=== PATIENT | male | born 1955 | race Caucasian/White ===

== ENCOUNTER → 2016-04-01 | Outpatient (CLI) | payer BC, OTHER ==
[~2016-04-01] MED LIST: ATOR-26 PO; BENA10TA10 PO; BUPR200T2 PO; CHOL20007 PO; GABA-113 PO; GLC/500 PO; GLIM1TAB2 PO; HYDR-3419 PO; HYDR-5688 PO; LEVO25TA5 PO; METF1000 PO; PREG200C PO; RXC5 PO; SITA100T3 PO; SPRYCEL PO
[2016-04-01 13:16] LABS: BASO % 0.6 %; BASO ABS # 0.03 K/uL (0-0.2); COMPLETE YES; EOS % 6.6 %; HEMATOCRIT 38.4 % (42-52); IG% 0.2 %; LYMPH % 35.7 %; LYMPH ABS # 1.85 K/uL (1.2-3.4); MEAN CORPUSCULAR HEMOGLOBIN 33.8 pg (25-34); MEAN CORPUSCULAR HGB CONC 34.9 g/dl (32-36); MEAN PLATELET VOLUME 11.7 fL (7.4-10.4); NEUT % 46.9 %; PLATELET COUNT 160 K/uL (130-400); RED BLOOD COUNT 3.96 M/uL (4.7-6.1); WHITE BLOOD COUNT 5.18 K/uL (4.8-10.8)
[2016-04-01 13:50] LABS: ESTIMATED AVERAGE GLUCOSE 128 mg/dl; HA1C FLAG Normal (Normal)
[2016-04-01 15:39] LABS: ALT/SGPT 30 U/L (12-78); AST/SGOT 17 U/L (15-37); BLOOD UREA NITROGEN 23 mg/dl (7-18); BUN/CREATININE RATIO 17.4 (10-20); CALCIUM 9.2 mg/dl (8.5-10.1); CARBON DIOXIDE 29 mmol/L (21-32); CHLORIDE 105 mmol/L (98-107); CHOLESTEROL 225 mg/dl (0-200); GLUCOSE 159 mg/dl (70-99); POTASSIUM 4.8 mmol/L (3.5-5.1); SODIUM 142 mmol/L (136-145); URIC ACID 6.3 mg/dl (2.6-7.2)
[2016-04-01 15:50] LABS: ALB/GLOB RATIO 1.6 (0.9-2); ALKALINE PHOSPHATASE 58 U/L (45-117); CHOLESTEROL/HDL RATIO 5.1; HDL CHOLESTEROL 44 mg/dl; LDL CHOLESTEROL CALCULATED 129 mg/dl; TRIGLYCERIDES 258 mg/dl (0-150); VERY LOW DENSITY LIPOPROT CALC 52 mg/dl
== END | disposition home or self-care (01) ==
LOC: C.LABMFLN 07:39
PROVIDERS: ATTEND Family Medicine
DX: E78.00 Pure hypercholesterolemia, unspecified (principal); I10 Essential (primary) hypertension; E11.29 Type 2 diabetes mellitus with other diabetic kidney complication; C92.10 Chronic myeloid leukemia, BCR/ABL-positive, not having achieved remission; E55.9 Vitamin D deficiency, unspecified; M10.9 Gout, unspecified; E03.9 Hypothyroidism, unspecified

== ENCOUNTER → 2016-07-31 | Outpatient (CLI) | payer OTHER ==
[2016-07-31 13:08] LABS: BASO % 0.7 %; BASO ABS # 0.04 K/uL (0-0.2); COMPLETE YES; EOS % 5.7 %; HEMATOCRIT 39.5 % (42-52); IG% 0.2 %; LYMPH % 42.4 %; LYMPH ABS # 2.47 K/uL (1.2-3.4); MEAN CELL VOLUME 96.3 fL (80-100); MEAN CORPUSCULAR HEMOGLOBIN 33.2 pg (25-34); MEAN CORPUSCULAR HGB CONC 34.4 g/dl (32-36); MEAN PLATELET VOLUME 11.3 fL (7.4-10.4); MONO % 13.1 %; NEUT % 37.9 %; PLATELET COUNT 182 K/uL (130-400); WHITE BLOOD COUNT 5.82 K/uL (4.8-10.8)
[2016-07-31 13:10] LABS: ALT/SGPT 35 U/L (12-78); BLOOD UREA NITROGEN 19 mg/dl (7-18); BUN/CREATININE RATIO 13.4 (10-20); CARBON DIOXIDE 28 mmol/L (21-32); CHLORIDE 106 mmol/L (98-107); CHOLESTEROL 148 mg/dl (0-200); GLUCOSE 157 mg/dl (70-99); POTASSIUM 4.2 mmol/L (3.5-5.1); SODIUM 142 mmol/L (136-145); TRIGLYCERIDES 146 mg/dl (0-150); VERY LOW DENSITY LIPOPROT CALC 29 mg/dl
[2016-07-31 13:11] LABS: CALCIUM 10.4 mg/dl (8.5-10.1)
[2016-07-31 13:19] LABS: ESTIMATED AVERAGE GLUCOSE 120 mg/dl; HA1C FLAG Normal (Normal)
[2016-07-31 13:21] LABS: ALB/GLOB RATIO 1.6 (0.9-2); ALKALINE PHOSPHATASE 62 U/L (45-117); AST/SGOT 26 U/L (15-37); CHOLESTEROL/HDL RATIO 3.4; HDL CHOLESTEROL 43 mg/dl; LDL CHOLESTEROL CALCULATED 76 mg/dl
== END | disposition home or self-care (01) ==
LOC: C.LABMFLN 07:44
PROVIDERS: ATTEND Family Medicine
DX: E78.00 Pure hypercholesterolemia, unspecified (principal); I10 Essential (primary) hypertension; E11.29 Type 2 diabetes mellitus with other diabetic kidney complication; E03.9 Hypothyroidism, unspecified; C92.10 Chronic myeloid leukemia, BCR/ABL-positive, not having achieved remission

== ENCOUNTER → 2016-08-19 | Outpatient (CLI) | payer BC ==
[2016-08-19 13:36] LABS: HEMATOCRIT 37.7 % (42-52); MEAN CELL VOLUME 97.2 fL (80-100); MEAN CORPUSCULAR HEMOGLOBIN 33.5 pg (25-34); MEAN CORPUSCULAR HGB CONC 34.5 g/dl (32-36); MEAN PLATELET VOLUME 11.7 fL (7.4-10.4); PLATELET COUNT 148 K/uL (130-400); RED BLOOD COUNT 3.88 M/uL (4.7-6.1); WHITE BLOOD COUNT 5.51 K/uL (4.8-10.8)
[2016-08-19 14:44] LABS: ALT/SGPT 33 U/L (12-78); AST/SGOT 22 U/L (15-37); BLOOD UREA NITROGEN 17 mg/dl (7-18); BUN/CREATININE RATIO 14.5 (10-20); CALCIUM 8.9 mg/dl (8.5-10.1); CARBON DIOXIDE 25 mmol/L (21-32); CHLORIDE 108 mmol/L (98-107); GLUCOSE 152 mg/dl (70-99); POTASSIUM 4.3 mmol/L (3.5-5.1); SODIUM 141 mmol/L (136-145)
[2016-08-19 14:46] LABS: ALKALINE PHOSPHATASE 59 U/L (45-117); PHOSPHORUS 2.3 mg/dl (2.5-4.9)
[2016-08-19 14:59] LABS: EOSINOPHIL % 1.7 %; HYPERSEGMENTED POLYS 1+; NEUTROPHILS % 68.7 %
[2016-08-19 18:29] LABS: MDIFF REQUEST DONE
== END | disposition home or self-care (01) ==
LOC: C.LABMFLN 10:12
PROVIDERS: ATTEND Internal Medicine Hematology & Oncology
DX: C92.90 Myeloid leukemia, unspecified, not having achieved remission (principal); D72.829 Elevated white blood cell count, unspecified

== ENCOUNTER → 2016-09-05 | Outpatient (CLI) | payer BC ==
[2016-09-05 17:58] LABS: BLOOD UREA NITROGEN 14 mg/dl (7-18); CALCIUM 9.3 mg/dl (8.5-10.1); CARBON DIOXIDE 29 mmol/L (21-32); CHLORIDE 105 mmol/L (98-107); GLUCOSE 171 mg/dl (70-99); POTASSIUM 4.7 mmol/L (3.5-5.1); SODIUM 139 mmol/L (136-145)
[2016-09-05 18:06] LABS: URINE APPEARANCE CLEAR (CLEAR); URINE BILIRUBIN NEG (NEG); URINE COLOR YELLOW; URINE NITRITE NEG (NEG); URINE PH 6.5 (4.5-7.5); URINE SPECIFIC GRAVITY 1.029 (1.000-1.030); UROBILINOGEN NEG (NEG)
[2016-09-05 18:16] LABS: BASO % 0.5 %; BASO ABS # 0.03 K/uL (0-0.2); COMPLETE YES; EOS % 3.7 %; HEMATOCRIT 39.4 % (42-52); IG% 0.2 %; LYMPH % 28.6 %; LYMPH ABS # 1.56 K/uL (1.2-3.4); MANUAL MICROSCOPIC REQUIRED? NO; MEAN CELL VOLUME 97.5 fL (80-100); MEAN CORPUSCULAR HEMOGLOBIN 33.4 pg (25-34); MEAN CORPUSCULAR HGB CONC 34.3 g/dl (32-36); MEAN PLATELET VOLUME 11.3 fL (7.4-10.4); MONO % 12.3 %; NEUT % 54.7 %; PLATELET COUNT 164 K/uL (130-400); RED BLOOD COUNT 4.04 M/uL (4.7-6.1); REVIEW REQ? NO; WHITE BLOOD COUNT 5.46 K/uL (4.8-10.8)
== END | disposition home or self-care (01) ==
LOC: C.LABMFLN 12:21
PROVIDERS: ATTEND Family Medicine
DX: I10 Essential (primary) hypertension (principal); R42 Dizziness and giddiness; M79.1 Myalgia; R50.9 Fever, unspecified

== ENCOUNTER 2016-10-04 08:02 | Inpatient (IN) | payer BC ==
[2016-09-16 10:22] VITALS: BMI 27.0
--- NOTE | 2016-09-16 11:01 | PAT Medication Instructions ---
Service Date Sep 16, 2016. Current Home Medication List Atorvastatin (Lipitor), 80 MG PO HS Benazepril (Lotensin), 10 MG PO QAM Bupropion (Wellbutrin Sr), 200 MG PO BID Cholecalciferol (Vitamin D3), 1 TAB PO QAM Gabapentin (Neurontin), 300 MG PO BID Gabapentin (Neurontin), 300 MG PO NOON Glimepiride (Glimepiride), 1 TAB PO QPM Hydrocodone/Acetaminophen 5MG/325MG ([place] 5MG/325MG), 1 TABLET PO QID PRN for N Levothyroxine Sodium (Levothyroxine Sodium), 1 TAB PO QAM Metformin Hcl (Glucophage), 500 MG PO BID [Sprycel], 100 MG PO HS Medication Instructions For Your Scheduled Surgery - Check with surgeon/oncologist for instructions: [Sprycel], 100 MG PO HS - Hold the following medications 48 hours prior to surgery: Metformin Hcl (Glucophage), 500 MG PO BID - Hold the following medications the morning of surgery: Cholecalciferol (Vitamin D3), 1 TAB PO QAM Benazepril (Lotensin), 10 MG PO QAM - Take the following medications the morning of surgery with a sip of water: Levothyroxine Sodium (Levothyroxine Sodium), 1 TAB PO QAM Hydrocodone/Acetaminophen 5MG/325MG ([place] 5MG/325MG), 1 TABLET PO QID PRN for N (okay to take up to 4 hours prior to surgery if needed) Gabapentin (Neurontin), 300 MG PO BID Bupropion (Wellbutrin Sr), 200 MG PO BID - Take the following medications as scheduled the night before surgery: Hydrocodone/Acetaminophen 5MG/325MG ([place] 5MG/325MG), 1 TABLET PO QID PRN for N (if needed) Glimepiride (Glimepiride), 1 TAB PO QPM Gabapentin (Neurontin), 300 MG PO BID Gabapentin (Neurontin), 300 MG PO NOON Bupropion (Wellbutrin Sr), 200 MG PO BID Atorvastatin (Lipitor), 80 MG PO HS If you have any questions please call us at [phone] or [phone] or [phone]
--- NOTE | 2016-09-16 11:54 | DIAGNOSTIC IMAGING REPORT ---
CHEST PREADMISSION(PA/LAT) CLINICAL HISTORY: Preoperative chest COMPARISON STUDY: 11/22/2014 FINDINGS: The heart is the upper limits of normal in size. There is no failure. There is no focal pulmonary consolidation. There are no pleural effusions.[ IMPRESSION: No active disease in the chest. Electronically signed by: Antonino Barrett M.D. 09/16/2016 11:53 AM Dictated Date/Time: 09/16/2016 11:52 AM
[2016-10-04] VITALS (9 sets, daily range): BP systolic 122–167; BP diastolic 63–83; PULSE 69–91; TEMP 36.4–36.9; O2SAT 97–100; Ht 177.8 cm; Wt 87.4 kg
[~2016-10-04] VITALS: Ht 177.8 cm; Wt 87.4 kg
[~2016-10-04 08:02] MED LIST changes: +CEFAZOLIN 2000 MG/60 ML D5W IV SCH; -HYDR-3419 PO; +LACTATED RINGER'S 1000ML 1,000 ML IV SCH; -METF1000 PO; -PREG200C PO; -RXC5 PO; -SITA100T3 PO
[2016-10-04 08:26] LABS: HEMATOCRIT 37.7 % (42-52); MEAN CELL VOLUME 97.7 fL (80-100); MEAN CORPUSCULAR HEMOGLOBIN 33.9 pg (25-34); MEAN PLATELET VOLUME 9.9 fL (7.4-10.4); PLATELET COUNT 151 K/uL (130-400); RED BLOOD COUNT 3.86 M/uL (4.7-6.1); WHITE BLOOD COUNT 4.77 K/uL (4.8-10.8)
[2016-10-04 08:43] LABS: MEAN CORPUSCULAR HGB CONC 34.7 g/dl (32-36)
[2016-10-04] MEDS ORDERED: HYDROmorphone INJ 1 MG/ML SYR IV PRN (09:15)
[2016-10-04] MEDS ORDERED: ONDANSETRON INJ 2 MG/ML 2 ML VIAL IV PRN ×2 (09:15→13:00)
[2016-10-04] MEDS ORDERED: EpHEDrine SULFATE INJ 50 MG/ML AMP IV PRN (09:15)
[2016-10-04] MEDS ORDERED: ATROPINE SULFATE 0.1 MG/ML 5ML SYR IV PRN (09:15)
[2016-10-04] MEDS ORDERED: MIDAZOLAM HCL 1 MG/ML 2ML VIAL ONE (09:31)
[2016-10-04] MEDS ORDERED: FENTANYL CITRATE INJ 50 MCG/1 ML 2 ML VIAL ONE ×3 (09:31→12:09)
--- NOTE | 2016-10-04 09:45 | History & Physical Bridge Note ---
H&P Re-Evaluation Bridge Note: I have examined the patient, reviewed the History & Physical and in the interval since the performance of the History & Physical I have noted the following changes of clinical significance: No changes noted
--- NOTE | 2016-10-04 09:46 | History and Physical ---
History & Physical Date Oct 04, 2016. Chief Complaint Back and leg pain History of Present Illness The patient is a 61 year old male with complaints of Past Medical/Surgical History Medical Problems: (1) Diabetes (2) Diabetic neuropathy (3) Leukemia Surgical Problems: (1) H/O eye surgery Additional History Hepatic Disease: No Endocrine Disorder: No Kidney Disease: No Hypertension: Yes Heart Disease: No Bleeding Tendencies: No Infectious Diseases: No Allergies Coded Allergies: Lisinopril (Verified Adverse Reaction, Mild, NAUSEA, 10/04/16) Codeine (Verified Adverse Reaction, Unknown, NAUSEA, 10/04/16) Home Medications Scheduled Atorvastatin (Lipitor), 80 MG PO HS Benazepril (Lotensin), 10 MG PO QAM Bupropion (Wellbutrin Sr), 200 MG PO BID Cholecalciferol (Vitamin D3), 1 TAB PO QAM Gabapentin (Neurontin), 300 MG PO BID Gabapentin (Neurontin), 300 MG PO NOON Glimepiride (Glimepiride), 1 TAB PO QPM Levothyroxine Sodium (Levothyroxine Sodium), 1 TAB PO QAM Metformin Hcl (Glucophage), 500 MG PO BID [Sprycel], 100 MG PO HS Scheduled PRN Hydrocodone/Acetaminophen 5MG/325MG ([place] 5MG/325MG), 1 TABLET PO QID PRN for N Physical Examination Skin: warm/dry, no rash Eyes: normal inspection, EOMI, sclerae normal ENT: normal ENT inspection, pharynx normal Head: normocephalic, atraumatic Neck: supple, no adenopathy, trachea midline Respiratory/Chest: lungs clear, normal breath sounds, no respiratory distress Cardiovascular: regular rate, rhythm, no edema, no murmur Abdomen / GI: normal bowel sounds, non tender Back: normal inspection Extremities: normal inspection, normal range of motion Neurologic/Psych: no motor/sensory deficits, alert, normal reflexes, oriented x 3 Diagnosis Lumbar spinal stenosis Plan of Treatment Lumbar decompression L3 4 L4 5 with fusion
[2016-10-04] MEDS ORDERED: BACITRACIN 50000 UNIT VIAL ONE (10:19)
[2016-10-04] MEDS ORDERED: BUPIVACAINE/EPINEPHRINE 0.5% MPF 1:200,000 10 ML VIAL ONE (10:19)
[2016-10-04] MEDS ORDERED: SODIUM CHLORIDE 0.9% PF 50 ML VIAL ONE (10:19)
[2016-10-04] MEDS ORDERED: HYDROmorphone INJ 2 MG/ML SYR/VIAL ONE ×2 (10:49→12:51)
[2016-10-04] MEDS ORDERED: DEXAMETHASONE SOD INJ 4 MG/ML VIAL ONE (11:25)
[2016-10-04] MEDS ORDERED: LIDOCAINE HCL 2% 2 ML VIAL (20MG/ML) ONE (11:25)
[2016-10-04] MEDS ORDERED: ROCURONIUM BROMIDE 10 MG/ML 5 ML VIAL ONE (11:25)
[2016-10-04] MEDS ORDERED: PROPOFOL IV EMULSION 10 MG/ML 20 ML VIAL IV ONE (11:25)
[2016-10-04] MEDS ORDERED: ALBUMIN HUMAN 5% 12.5 GM/250 ML VIAL IV ONE (12:17)
[2016-10-04] MEDS ORDERED: FLOSEAL HEMOSTATIC MATRIX 10ML TOP ONE (12:41)
[2016-10-04] MEDS ORDERED: SODIUM CHLORIDE 0.9% 1000ML 1,000 ML IV SCH (12:49)
[2016-10-04] MEDS ORDERED: LABETALOL HCL IV 5 MG/ML 20ML IV ONE (12:53)
[2016-10-04] MEDS ORDERED: GLYCOPYRROLATE INJ 0.2 MG/ML VIAL ONE (12:53)
[2016-10-04] MEDS ORDERED: EpHEDrine SULFATE 50MG/5ML SYR ONE (12:53)
[2016-10-04] MEDS ORDERED: ONDANSETRON INJ 2 MG/ML 2 ML VIAL ONE (12:53)
[2016-10-04] MEDS ORDERED: NEOSTIGMINE METHYLSULFATE 1 MG/ML 10ML VIAL ONE (12:53)
[2016-10-04] MEDS ORDERED: ESMOLOL HCL 10 MG/ML 10 ML VIAL ONE (12:53)
--- NOTE | 2016-10-04 12:59 | [facility] Operative Report ---
Operative Report Operative Date Oct 04, 2016. Pre-Operative Diagnosis Lumbar Spinal Stenosis Post-Operative Diagnosis Lumbar Spinal Stenosis Procedure(s) Performed #1 lumbar decompression medial facetectomies foraminotomies L2 3 L3 4 L4 5. #2 posterior spinal fusion L3 4 L4 5. #3 placement posterior segmental instrumentation L3 4 L4 5. #4 interbody fusion L3 4 L4 5. #5 placement peek cage 11 x 22 at L4 5 and 12 x 22 at L34. #6 placement locally harvested morcellized autograft in the posterior gutters. #7 placement infuse collagen sponge combined Master graft in the posterior lateral gutters Valencia bone graft in the interbody space. Surgeon Dr. Grover Radiagraph Operator Surgeon(s) Crisotpher García PA-C Estimated Blood Loss 525 cc Findings Severe stenosis Specimens none per surgeon Description of Procedure Patient was met with preoperatively case discussed all questions are dressed with a point patient was taken back to the operative suite and after undergoing successful intubation placed in a prone position on the Ashok table on top of the Jaquan frame. All bony promises well-padded eyes inspected to ensure no external pressure. Lumbar spines prepped and draped in normal sterile fashion. Sharp dissection with the assistance of Bovie cautery performed onto an exposing the lamina and transverse processes of L3 L4 L5 bilaterally. A caudal to cephalad fashion revision complete laminectomy of L4 and L3 was performed as well as partial laminectomy of L2 to address severe lateral recess and foraminal stenosis. After this complete pedicle screws were placed in L3 L4-L5 bilaterally with the assistance of fluoroscopy in the properly sized crystal placed. Through a transforaminal approach on the right a complete discectomy of L4 5 was performed and plate created subcortical bleeding bone and a 11 x 22 mm peek cage filled with Valencia bone grafting tapped in position. Then proceeded to 34 and again through a transforaminal approach on the right a complete discectomy was performed and plate create a subcortical bleeding bone and a 12 x 22 mm peek cage filled with Valencia bone grafting tapped in position. Brought to then locked and final position bilaterally and the transverse processes of L3 L4-L5 burred to subcortical bleeding bone. Infuse collagen sponge mask graft locally harvested morcellized autograft placed and posterior gutters. A 15 round MELISSA drain inserted incision closed with 1 Vicryl in the fascia 2-0 Vicryl subcutaneously 4-0 Monocryl for final skin closure Steri-Strips sterile dressing placed patient we can taken to PACU stable condition. Please note Daniele record was present throughout the entire procedure involved in patient positioning complex portions of the procedure and final skin closure. I attest to the content of the Intraoperative Record and any orders documented therein. Any exceptions are noted below.
[2016-10-04] MEDS ORDERED: ACETAMINOPHEN 500 MG TAB PO PRN (13:00)
[2016-10-04] MEDS ORDERED: ALUMINUM/MAGNESIUM SUSP 30 ML UDC PO PRN (13:00)
[2016-10-04] MEDS ORDERED: PROMETHAZINE HCL INJ 12.5 MG in SODIUM CHLORIDE 0.9% 50ML 50 ML IV PRN (13:00)
[2016-10-04] MEDS ORDERED: SOD PHOSPHATE/SOD BIPHOSPHATE ENEMA 132 ML BTL PR PRN (13:00)
[2016-10-04] MEDS ORDERED: hydrOXYzine HCL 25 MG TAB PO PRN (13:00)
[2016-10-04] MEDS ORDERED: MAGNESIUM HYDROXIDE SUSP 30 ML UDC PO PRN (13:00)
[2016-10-04] MEDS ORDERED: ACETAMINOPHEN IV 100 ML IV PRN (13:00)
[2016-10-04] MEDS ORDERED: LORAZEPAM INJ 0.5 MG in SYRINGE 0 ML IV PRN (13:00)
[2016-10-04] MEDS ORDERED: BISACODYL 10 MG SUPP PR PRN (13:00)
[2016-10-04] MEDS ORDERED: DO NOT ADMINISTER FLU VACCINE PRN ×3 (13:00)
[2016-10-04] MEDS ORDERED: LORAZEPAM 0.5 MG TAB PO PRN (13:00)
[2016-10-04] MEDS ORDERED: FAMOTIDINE 20 MG TAB PO PRN (13:00)
[2016-10-04] MEDS ORDERED: NALOXONE HCL 0.4 MG/1 ML VIAL/CARP IV PRN ×2 (13:00)
[2016-10-04] MEDS ORDERED: DO NOT ADMINISTER PNEUMOCOCCAL VACCINE PRN ×2 (13:00)
[2016-10-04] MEDS ORDERED: PHARMACY GLYCEMIC MGMT CONSULT PRN (13:02)
[2016-10-04] MEDS: FENTANYL CITRATE INJ 50 MCG/1 ML 2 ML VIAL IV PRN ×4 (13:12→13:30)
[2016-10-04] MEDS ORDERED: HYDROmorphone HCL 0.5MG/ML 50 ML CASSETTE ONE (13:12)
--- NOTE | 2016-10-04 13:33 | DIAGNOSTIC IMAGING REPORT ---
INTRAOPERATIVE LUMBAR SPINE 2 VIEWS CLINICAL HISTORY: L3-5 LAMI/DECOMPRESSION/FUSION/INTERBODY COMPARISON STUDY: Outside radiograph dated 08/13/2016 FINDINGS: 12 seconds of fluoroscopic time was utilized. 2 intraoperative fluoroscopic spot images are provided for interpretation. There are postsurgical changes of discectomies and interbody fusions at the L3-4, and L4-5 levels. There is posterior pedicle screw spinal fusion with pedicle screws at the L3, L4, and L5 levels with adjoining spinal rods. IMPRESSION: Postsurgical changes of discectomies and spinal fusion at the L3-4 and L4-5 levels. Electronically signed by: Antonino Barrett M.D. 10/04/2016 1:32 PM Dictated Date/Time: 10/04/2016 1:30 PM
--- NOTE | 2016-10-04 13:40 | Pharmacy Progress Note ---
Glycemic Control Intl Consult Date of Service Oct 04, 2016. Scope Glycemic Pharmacist consulted by Dr Grover on 10/04/16 for glycemic control and to write orders per [facility] inpatient glycemic control protocol Objective Weight (Kilograms): 87.40 Accuchecks BSG (last 24hrs): Test 10/04/16 08:25 10/04/16 13:14 Bedside Glucose 139 mg/dl (70-99) 191 mg/dl (70-99) Laboratory Data (last 24hrs) Test 10/04/16 08:16 White Blood Count 4.77 K/uL Recent Pertinent Medications Outpatient Anti-diabetic Regimen: * Amaryl 1 mg daily * Metformin 500 mg BID * A1c = 5.8 % 07/31/16 Risk Factors for Insulin Resistance: * Steroids: Decadron intraop (potentially up to 12 mg), 6 mg IV q8h x 3 doses postop * Recent Surgery: POD #0 s/p spinal surgery * Diet: Regular diet ordered -> I have changed this to type 2 diabetes Assessment & Plan ASSESSMENT: * 61 y/o male admitted for lumbar surgery, with well controlled diabetes as an outpatient * Pt is maintained on oral antidiabetic agents as an outpatient * Oral agents are not recommended for inpatient use d/t drug interactions, changing PO intake, and difficulty titrating for acute hyper/hypoglycemia. ADA recommends re-initiating outpatient oral agents 1-2 days prior to discharge if/ when appropriate if they were held on admission. * Will hold oral agents for admission and utilize SQ basal bolus insulin regimen which is the recommended regimen for inpatient glycemic control. * Will initiate weight based insulin dosing for insulin chris patient and titrate based on BSG trends. * Due to Decadron being on board, patient will need aggressively dosed with insulin for the next 36-48 hours * This is also based upon pharmacy's review of multiple patients receiving postop Decadron * ADA & AACE recommend a goal blood sugar range 140-180 mg/dl for the majority of critically ill & non-critically ill patients. However, more stringent targets may be selected in individual cases. Will utilize more stringent goal of 110-140mg/dl based on patient age & comorbidities. Additionally, tighter glycemic control is warranted to facilitate wound/infection healing. PLAN FOR INPATIENT GLYCEMIC CONTROL: * Holding outpatient oral diabetes medications * Basal insulin with LANTUS: * POD #0 22 units with dinner today * POD #1 15 units in the AM, 8 units in the PM * Correctional Insulin with NOVOLOG per scale ACHS or Q6hrs while NPO * Goal Range: Low 110 mg/dL - High 140 mg/dL * Correction Factor: POD #0 - 20 mg/dL/unit POD #1 and on - 25 mg/dL/unit * Nutritional / Prandial insulin per carb ratio: POD #0 - 1 unit per 6 grams CHO consumed POD #1 - 1 unit per 9 grams CHO consumed (starting with dinner) POD #2 - 1 unit per 15 gm CHO consumed * Plan to resume orals on POD #2 DISCHARGE RECOMMENDATIONS: * A1c acceptable - continue outpatient oral meds Thank you.
[2016-10-04] MEDS ORDERED: GLUCAGON FOR INJ 1 MG VIAL SQ PRN (13:45)
[2016-10-04] MEDS ORDERED: GLUCOSE 10 TABS/TUBE PO PRN (13:45)
[2016-10-04] MEDS ORDERED: DEXTROSE 50% 50 ML SYR IV PRN (13:45)
[2016-10-04] MEDS ORDERED: GLUCOSE 40% GEL 15 GM TUBE PO PRN (13:45)
[2016-10-04] MEDS: HYDROmorphone HCL 0.5MG/ML 50 ML CASSETTE IV PRN ×3 (14:09→22:51)
[2016-10-04] MEDS: METOCLOPRAMIDE HCL INJ 5 MG/ML 2 ML VIAL IV PRN ×2 (14:30→21:41)
[2016-10-04] MEDS: LACTATED RINGER'S 1000ML 1,000 ML IV SCH ×2 (15:06→19:05)
--- NOTE | 2016-10-04 15:48 | Anesthesiology Progress Note ---
Anesthesia Post Op Note Date & Time Oct 04, 2016 at 15:48 Vital Signs Pain Intensity: 4.0 Vital Signs Past 12 Hours Date Time Temp Pulse Resp B/P (MAP) Pulse Ox O2 Delivery O2 Flow Rate FiO2 10/04/16 15:08 36.4 70 16 137/77 (97) 100 Nasal Cannula 3.0 10/04/16 14:35 79 18 157/83 (107) 98 10/04/16 14:17 Nasal Cannula 3.0 100 10/04/16 14:12 99 Nasal Cannula 3.0 10/04/16 14:06 36.7 74 15 167/65 (99) 100 Nasal Cannula 3.0 10/04/16 13:53 36.5 10/04/16 13:50 73 152/79 100 10/04/16 13:50 72 12 10/04/16 13:45 79 12 10/04/16 13:45 80 12 160/83 100 10/04/16 13:40 77 10/04/16 13:40 77 16 165/82 100 10/04/16 13:35 76 158/85 100 10/04/16 13:35 76 14 10/04/16 13:30 75 14 156/87 100 10/04/16 13:30 76 10/04/16 13:26 145/84 10/04/16 13:25 81 9 100 10/04/16 13:25 81 9 10/04/16 13:20 81 7 156/79 100 10/04/16 13:20 81 7 10/04/16 13:16 164/81 10/04/16 13:15 87 21 100 10/04/16 13:15 88 21 10/04/16 13:10 84 14 10/04/16 13:10 83 14 159/86 100 10/04/16 13:10 36.7 84 16 159/86 100 Mask 10 10/04/16 08:19 36.9 73 18 122/67 100 Notes Mental Status: alert / awake / arousable, participated in evaluation Pt Amnestic to Procedure: Yes Nausea / Vomiting: adequately controlled Pain: adequately controlled Airway Patency, RR, SpO2: stable & adequate BP & HR: stable & adequate Hydration State: stable & adequate Anesthetic Complications: no major complications apparent
[2016-10-04] MEDS ORDERED: INSULIN GLARGINE SOLOSTAR 100 UNITS/ML 3 ML PEN SC ONE (17:00)
[2016-10-04] MEDS: CEFAZOLIN IV 2,000 MG in DEXTROSE 5% 50ML 50 ML IV SCH (18:38)
[2016-10-04] MEDS: INSULIN ASPART 100 UNITS/ML 3 ML PEN SC SCH ×2 (18:39→21:48)
[2016-10-04] MEDS: BuPROPion SR 100 MG TABCR PO SCH (21:00)
[2016-10-04] MEDS: GABAPENTIN 300 MG CAP PO SCH (21:00)
[2016-10-04] MEDS: DOCUSATE SODIUM/SENNA 50/8.6MG TAB PO SCH (21:00)
[2016-10-04] MEDS: ATORVASTATIN 40 MG TAB PO SCH (21:00)
[2016-10-04] MEDS: DEXAMETHASONE INJ 6 MG in SYRINGE 0 ML IV SCH (22:22)
[2016-10-05] MEDS: LACTATED RINGER'S 1000ML 1,000 ML IV SCH (02:07)
[2016-10-05] MEDS: CEFAZOLIN IV 2,000 MG in DEXTROSE 5% 50ML 50 ML IV SCH (02:07)
[2016-10-05 03:15] VITALS: BP 124/57; PULSE 77; TEMP 36.8; O2SAT 95
[2016-10-05] MEDS ORDERED: HYDROmorphone INJ 1 MG/ML SYR IV PRN ×2 (06:00→08:45)
[2016-10-05] MEDS ORDERED: DC PCA SCH (06:00)
[2016-10-05] MEDS ORDERED: HYDROmorphone INJ 0.5 MG/0.5 ML SYR IV PRN (06:00)
[2016-10-05] MEDS: DEXAMETHASONE INJ 6 MG in SYRINGE 0 ML IV SCH ×2 (06:07→13:44)
[2016-10-05] MEDS: LEVOTHYROXINE 25 MCG TAB PO SCH (06:07)
[2016-10-05] MEDS: OXYCODONE HCL IR 5 MG TAB (IMMEDIATE RELEASE) PO PRN ×3 (06:08→20:39)
[2016-10-05] MEDS ORDERED: NURSING VERBAL MED ORDER ONE ×2 (06:15→08:45)
[2016-10-05 06:26] LABS: COMPLETE YES; HEMATOCRIT 29.1 % (42-52); IG% 0.2 %; LYMPH % 4.9 %; LYMPH ABS # 0.51 K/uL (1.2-3.4); MEAN CELL VOLUME 96.4 fL (80-100); MEAN CORPUSCULAR HEMOGLOBIN 33.4 pg (25-34); MEAN CORPUSCULAR HGB CONC 34.7 g/dl (32-36); MEAN PLATELET VOLUME 10.8 fL (7.4-10.4); MONO % 7.9 %; PLATELET COUNT 148 K/uL (130-400); RED BLOOD COUNT 3.02 M/uL (4.7-6.1); WHITE BLOOD COUNT 10.38 K/uL (4.8-10.8)
[2016-10-05 07:06] LABS: BUN/CREATININE RATIO 9.9 (10-20); CALCIUM 8.5 mg/dl (8.5-10.1); POTASSIUM 4.1 mmol/L (3.5-5.1)
[2016-10-05 07:58] VITALS: BP 127/68; PULSE 76; TEMP 36.7; O2SAT 97
[2016-10-05] MEDS ORDERED: INSULIN GLARGINE SOLOSTAR 100 UNITS/ML 3 ML PEN SC ONE ×3 (08:00→21:00)
[2016-10-05] MEDS: GABAPENTIN 300 MG CAP PO SCH ×2 (08:26→20:41)
[2016-10-05] MEDS: BENAZEPRIL HCL 10 MG TAB PO SCH (08:27)
[2016-10-05] MEDS: BuPROPion SR 100 MG TABCR PO SCH ×2 (08:27→20:40)
[2016-10-05] MEDS: INSULIN ASPART 100 UNITS/ML 3 ML PEN SC SCH ×4 (08:40→20:47)
[2016-10-05] MEDS ORDERED: HYDROmorphone INJ 2 MG/ML SYR/VIAL IV PRN (08:45)
[2016-10-05] MEDS ORDERED: RXC5 PO (09:21)
--- NOTE | 2016-10-05 09:22 | Discharge Instructions ---
Discharge Instructions Date of Service Oct 05, 2016. Admission Reason for Admission: Spinal Stenosis Discharge Discharge Diagnosis / Problem: lumbar stenosis Discharge Goals Goal(s): Improve function Activity Recommendations Activity Limitations: per Instructions/Follow-up section . Instructions / Follow-Up Instructions / Follow-Up ACTIVITY RECOMMENDATIONS: SELF CARE INSTRUCTIONS AFTER THORACIC/LUMBAR FUSIONS 1. You may walk to your tolerance. It is good exercise for your legs and back. Expect some back and intermittent leg aches and pains. 2. You may perform "counter-top" level activities (make a sandwich, ely with a project, etc.). 3. No bending or lifting of more than 10 pounds or back twisting of any nature (roll like a log when turning in bed). 4. You may ride in a car for 20-30 minutes at a time. No driving until after your first visit with your doctor. 5. Frequent changes of position and restricting sitting to 30 minutes at a time will help limit the amount of back spasms and stiffness you may experience. 6. You may discontinue the use of ambulatory aids (cane, crutches, etc.) once your strength and confidence allow. 7. You may straight knife machine cutter the shower and let water strike your incision when you arrive home at least once daily. Do not take a tub bath, sit in a hot tub or go into a swimming pool until after your first recheck in the office. SPECIAL CARE INSTRUCTIONS: VERY IMPORTANT TO READ AND REVIEW A. Your surgical incision has been closed with a cosmetic suture under the skin that will dissolve in about 6 weeks. In 14 days, you can use a pair of clean scissors and cut the suture that is left outside of the skin at the ends of your incision. 1. The small skin tapes can be removed 7 days after surgery if they have not fallen off by that point. 2. You may keep the wound open to air as much as possible to promote healing after post-op day number 5 unless told otherwise by your doctor. 3. If you think the wound looks like it is becoming infected (redness or worsening drainage) and/or you are experiencing fever, chill or worsening back pain and muscle spasms, contact the office so that we may evaluate you as soon as possible. B. Complications are uncommon, but please contact us if you have any signs or symptoms of: 1. wound infection (fever higher than 102.5 degrees F, redness, separation of wound, drainage, or increasing pain from the incision) 2. blood clots in legs (pain, swelling, redness and warmth in legs) 3. urinary tract infection (fever higher than 102.5 degrees F, burning upon urination or increased frequency of urination) 4. nerve problems (inability to walk on your toes or heels, numbness, loss of bowel or bladder control) 5. any other symptoms that concern you C. Please call the office at if you have any concerns or questions about your operation or recovery. D. No smoking! Smoking drastically decreases the chance of a solid fusion. E. Do not take any anti-inflammatory medications (Indocin, Advil, Motrin, Aspirin, Naprosyn, etc.) as these may inhibit the chance of a solid fusion. Tylenol is okay to take for pain. MANAGING PAIN AFTER SPINAL SURGERY 1. Narcotic medication is intended for short-term use and will be provided for surgical pain. Surgical pain usually lasts for a period of 4-6 weeks. Narcotic medication includes Percocet, Vicodin, Darvocet, Tylenol #3 or Lortab. 2. Longer-term pain is more appropriately treated with non-narcotic medication such as Tylenol ES. 3. Muscle spasm is not appropriately treated with narcotics. Muscle relaxers such as Soma, Flexeril or Skelaxin can be used along with Tylenol ES. 4. Remember that we all live with some "aches and pains". This is not unusual or uncommon after an injury or as we get older. a. Back pain is expected and may include muscle spasms for 4 to 6 weeks after surgery. The pain should gradually improve. If the pain worsens for no apparent reason, please contact the office. b. Intermittent leg pain may also be experienced and should not be concerned about unless it worsens for no apparent reason. If so, please contact the office. 5. We will provide appropriate medication within the normal guidelines of their prescribed use. We will also be very cautious and aware of potential abuse and extended duration of patients' medication needs. a. Pain medications are for your comfort and to assist with sleep and rest so that the tissue can heal. They are not provided in order to return to normal activity and should not be used through the day. To do so or worsening pain at night can result from ongoing tissue damage and development of tolerance to the prescribed medicine. 6. Please allow 2-3 days to process refills. Prescriptions will not be mailed but must be picked up at the office. FOLLOW UP VISIT: Keep your scheduled follow-up appointment. Any questions, please call the office at . Current Hospital Diet Patient's current hospital diet: Diabetes Type 2 Diet Discharge Diet Recommended Diet: Regular Diet Procedures Procedures Performed: #1 lumbar decompression medial facetectomies foraminotomies L2 3 L3 4 L4 5. #2 posterior spinal fusion L3 4 L4 5. #3 placement posterior segmental instrumentation L3 4 L4 5. #4 interbody fusion L3 4 L4 5. #5 placement peek cage 11 x 22 at L4 5 and 12 x 22 at L34. #6 placement locally harvested morcellized autograft in the posterior gutters. #7 placement infuse collagen sponge combined Master graft in the posterior lateral gutters Valencia bone graft in the interbody space. Pending Studies Studies pending at discharge: no Laboratory Results Hemoglobin A1c Test 07/31/16 06:52 Range/Units Estimated Average Glucose 120 mg/dl Hemoglobin A1c 5.8 H 4.5-5.6 % Lipid Panel Test 07/31/16 06:52 Range/Units Triglycerides Level 146 0-150 mg/dl Cholesterol Level 148 0-200 mg/dl HDL Cholesterol 43 mg/dl Cholesterol/HDL Ratio 3.4 LDL Cholesterol, Calculated 76 mg/dl Medical Emergencies . Who to Call and When: Medical Emergencies: If at any time you feel your situation is an emergency, please call 911 immediately. . Non-Emergent Contact Non-Emergency issues call your: Primary Care Provider . "Provider Documentation" section prepared by Jose Grover. . VTE Core Measure Inpt VTE Proph given/why not?: Dane Almeida, SCD's
--- NOTE | 2016-10-05 09:23 | Progress Note ---
Progress Note Date of Service Oct 05, 2016. Progress Note Patient's back pain is controlled. His leg pain markedly improved. Vital signs are stable. MELISSA drain decreasing appropriately. On exam his good strength testing appears comfortable. Assessment status post lumbar depression fusion replant this time will continue physical therapy advance his bowel regimen to consider possible discharge home Friday or Friday.
[2016-10-05] MEDS ORDERED: KETOROLAC TROMETHAMINE 30 MG/ML VIAL IV PRN (09:30)
[2016-10-05] MEDS ORDERED: GABAPENTIN 300 MG CAP PO SCH (12:00)
[2016-10-05 12:25] VITALS: BP 128/70; PULSE 72; TEMP 36.5; O2SAT 98
[2016-10-05] MEDS ORDERED: INSULIN ASPART 100 UNITS/ML 3 ML PEN SC SCH (16:00)
[2016-10-05 16:08] VITALS: BP 136/65; PULSE 82; TEMP 36.8; O2SAT 97
[2016-10-05] MEDS: ATORVASTATIN 40 MG TAB PO SCH (21:46)
[2016-10-05] MEDS: DOCUSATE SODIUM/SENNA 50/8.6MG TAB PO SCH (21:47)
[2016-10-05 23:09] VITALS: BP 145/64; PULSE 75; TEMP 36.6; O2SAT 98
[2016-10-06] MEDS: LEVOTHYROXINE 25 MCG TAB PO SCH (05:24)
[2016-10-06] MEDS ORDERED: POLYETHYLENE (MIRALAX) 17 GM PACK PO SCH (06:00)
[2016-10-06 06:35] VITALS: BP 150/74; PULSE 77; TEMP 36.6; O2SAT 97
[2016-10-06] MEDS ORDERED: INSULIN ASPART 100 UNITS/ML 3 ML PEN SC SCH (07:00)
[2016-10-06] MEDS: GABAPENTIN 300 MG CAP PO SCH (07:13)
[2016-10-06] MEDS: BuPROPion SR 100 MG TABCR PO SCH (07:14)
[2016-10-06] MEDS: BENAZEPRIL HCL 10 MG TAB PO SCH (07:14)
[2016-10-06] MEDS ORDERED: GLIMEPIRIDE 2 MG TAB PO SCH (08:00)
[2016-10-06] MEDS ORDERED: METFORMIN HCL 500 MG TAB PO SCH (08:00)
--- NOTE | 2016-10-06 08:19 | Orthopedic Progress Note ---
Orthopedic Progress Note Date of Service Oct 06, 2016. Subjective Post OP Day: 2 Reports: feeling well Additional Notes: Daniele is doing well. No radicular leg pain. Back pain control. MELISSA drain output last shift was 35 mL. He is Ambulating 250 feet plus hallways in physical therapy yesterday. He is passing flatus. No bowel movement. No nausea, vomiting, abdominal distention or abdominal pain. Objective calves soft nontender, N/V intact, capillary refill less than 2 sec., dressing C /D/I, A&O x3, toes mobile Date Time Temp Pulse Resp B/P (MAP) Pulse Ox O2 Delivery O2 Flow Rate FiO2 10/06/16 07:32 Room Air 10/06/16 06:35 36.6 77 16 150/74 (99) 97 Room Air 10/06/16 00:29 Room Air 10/05/16 23:09 36.6 75 16 145/64 (91) 98 Room Air 10/05/16 16:08 36.8 82 18 136/65 (88) 97 Room Air 10/05/16 15:20 Room Air 10/05/16 12:25 36.5 72 16 128/70 (89) 98 Room Air Assessment & Plan Assessment: Postoperative day 2 lumbar decompression fusion doing well Plan: Patient will have physical therapy this morning. We will DC MELISSA drain and dressing change. Plan is discharge home later on this afternoon. Restrictions have been reviewed in detail with the patient.
--- NOTE | 2016-10-06 08:22 | Discharge Summary ---
Orthopedic Discharge Summary Admission Date/Reason Oct 04, 2016 at 10:07 Spinal Stenosis. Discharge Date/Disposition Oct 06, 2016 Home Diagnosis Principal Diagnosis: Lumbar spinal stenosis Procedure(s) Performed Posterior lumbar decompression with instrumented fusion L3 4, L4 5 Medication Reconciliation New Medications: Oxycodone HCl (Oxycodone HCl) 5 Mg Tab 5-10 MG PO Q4H PRN for Moderate - severe pain for 30 Days, #60 TAB Continued Medications: Atorvastatin (Lipitor) 80 Mg Tab 80 MG PO HS, TAB Benazepril (Lotensin) 10 Mg Tab 10 MG PO QAM, TAB Bupropion (Wellbutrin Sr) 200 Mg Ertab 200 MG PO BID, TAB Cholecalciferol (Vitamin D3) 2,000 Unit Tab 1 TAB PO QAM for 90 Days, #90 TAB 3 Refills Gabapentin (Neurontin) 300 Mg Cap 300 MG PO BID, CAP Gabapentin (Neurontin) 300 Mg Cap 300 MG PO NOON, CAP Glimepiride (Glimepiride) 1 Mg Tab 1 TAB PO QPM for 90 Days, TAB 3 Refills Hydrocodone/Acetaminophen 5MG/325MG ([place] 5MG/325MG) Tab 1 TABLET PO QID PRN for N, TAB PRN PAIN Levothyroxine Sodium (Levothyroxine Sodium) 25 Mcg Tab 1 TAB PO QAM for 90 Days, #90 TAB 3 Refills Metformin Hcl (Glucophage) 500 Mg Tab 500 MG PO BID, TAB [Sprycel] () 100 MG PO HS Admission Physical Exam As per Admitting History & Physical. Hospital Course Patient has had an uneventful hospital course status post lumbar decompression fusion. His pain is improved. He is progressing well in physical therapy. lab values have remained stable. Discharge Instructions Please refer to the electronic Patient Visit Report (Discharge Instructions) for additional information.
[2016-10-06 08:54] VITALS: BP 150/74; PULSE 77; TEMP 36.6; O2SAT 97
[2016-10-06] MEDS: OXYCODONE HCL IR 5 MG TAB (IMMEDIATE RELEASE) PO PRN (09:11)
[2016-10-07 08:31] LABS: ESTIMATED AVERAGE GLUCOSE 111 mg/dl; HA1C FLAG Normal (Normal)
== END 2016-10-06 10:26 | disposition home or self-care (01) | DRG 460 ==
LOC: C.ACU 08:02 → C.3E 10:07 → ENRESERV 13:36
PROVIDERS: ADMIT Orthopaedic Surgery Orthopaedic Surgery of the Spine; ATTEND Orthopaedic Surgery Orthopaedic Surgery of the Spine
PROC: 0SG10AJ Fusion of 2 or more Lumbar Vertebral Joints with Interbody Fusion Device, Posterior Approach, Anterior Column, Open Approach (ICD-10-PCS; principal; 2016-10-04 10:15)
PROC: 0SG1071 Fusion of 2 or more Lumbar Vertebral Joints with Autologous Tissue Substitute, Posterior Approach, Posterior Column, Open Approach (ICD-10-PCS; principal; 2016-10-04 10:15)
PROC: 0ST20ZZ Resection of Lumbar Vertebral Disc, Open Approach (ICD-10-PCS; principal; 2016-10-04 10:15)
DX: M48.06 Spinal stenosis, lumbar region (principal); C95.90 Leukemia, unspecified not having achieved remission; E11.40 Type 2 diabetes mellitus with diabetic neuropathy, unspecified; Z79.899 Other long term (current) drug therapy; Z79.84 Long term (current) use of oral hypoglycemic drugs

== ENCOUNTER → 2016-11-01 | Outpatient (CLI) | payer BC ==
[~2016-11-01] MED LIST changes: -CEFAZOLIN 2000 MG/60 ML D5W IV SCH; -LACTATED RINGER'S 1000ML 1,000 ML IV SCH; +RXC5 PO
[2016-11-01 17:56] LABS: BASO % 0.5 %; BASO ABS # 0.03 K/uL (0-0.2); COMPLETE YES; EOS % 4.1 %; HEMATOCRIT 36.8 % (42-52); IG% 0.2 %; LYMPH % 31.4 %; LYMPH ABS # 1.75 K/uL (1.2-3.4); MEAN CELL VOLUME 98.1 fL (80-100); MEAN CORPUSCULAR HEMOGLOBIN 33.3 pg (25-34); MEAN PLATELET VOLUME 10.4 fL (7.4-10.4); MONO % 11.5 %; NEUT % 52.3 %; PLATELET COUNT 246 K/uL (130-400); RED BLOOD COUNT 3.75 M/uL (4.7-6.1); WHITE BLOOD COUNT 5.58 K/uL (4.8-10.8)
[2016-11-01 18:02] LABS: BLOOD UREA NITROGEN 14 mg/dl (7-18); BUN/CREATININE RATIO 12.5 (10-20); CALCIUM 9.1 mg/dl (8.5-10.1); CARBON DIOXIDE 31 mmol/L (21-32); CHLORIDE 104 mmol/L (98-107); GLUCOSE 146 mg/dl (70-99); SODIUM 140 mmol/L (136-145)
== END | disposition home or self-care (01) ==
LOC: C.LABMFLN 13:58
PROVIDERS: ATTEND Family Medicine
DX: R55 Syncope and collapse (principal)

== ENCOUNTER → 2017-04-07 | Outpatient (CLI) | payer OTHER ==
[2017-04-07 15:30] LABS: BLOOD UREA NITROGEN 22 mg/dl (7-18); CALCIUM 8.8 mg/dl (8.5-10.1); CARBON DIOXIDE 26 mmol/L (21-32); CREATININE 1.24 mg/dl (0.60-1.40); GLUCOSE 120 mg/dl (70-99); POTASSIUM 4.8 mmol/L (3.5-5.1); SODIUM 141 mmol/L (136-145)
--- NOTE | 2017-04-07 15:30 | DIAGNOSTIC IMAGING REPORT ---
ABDOMEN FOR HERNIA CLINICAL HISTORY: 61 years-old Male presenting with R10.30 Groin painr/o right inguinal [id number]. TECHNIQUE: Real-time grayscale ultrasound imaging of the right inguinal region was performed. Color Doppler was also performed. COMPARISON: None. FINDINGS: At the site of clinical concern in the right inguinal region, a prominent benign-appearing lymph node is noted. This measures 3.2 x 0.7 x 0.8 cm. Additionally a potential peritoneal defect with herniation of hyperechogenic material consistent with fat is noted. Upon compression with the ultrasound probe, this herniation appears to reduce. No associated fluid or inflammatory change. IMPRESSION: 1. Reducible fat-containing right inguinal hernia. Electronically signed by: Fredy Benoit M.D. 04/07/2017 3:28 PM Dictated Date/Time: 04/07/2017 3:26 PM
== END | disposition home or self-care (01) ==
LOC: C.ULTR 14:13
PROVIDERS: ATTEND Surgery
DX: I10 Essential (primary) hypertension (principal); R10.30 Lower abdominal pain, unspecified; K40.90 Unilateral inguinal hernia, without obstruction or gangrene, not specified as recurrent

== ENCOUNTER → 2017-04-25 | Day surgery (SDC) | payer OTHER ==
[2017-04-21 15:23] VITALS: Ht 177.8 cm; Wt 82.7 kg
[~2017-04-25] VITALS: Ht 177.8 cm; Wt 82.7 kg
[~2017-04-25] MED LIST changes: +AMIT25TA9 PO; +ATROPINE SULFATE 0.1 MG/ML 5ML SYR IV PRN; -BENA10TA10 PO; +BENA20TA14 PO; +BUPIVACAINE/EPINEPHRINE 0.5% MPF 1:200,000 30 ML VIAL ONE; +CEFAZOLIN 2000MG IV PUSH 15 ML IV SCH; +CHOL1000 PO; -CHOL20007 PO; +DEXAMETHASONE SOD INJ 4 MG/ML VIAL IV PRN; +DEXAMETHASONE SOD INJ 4 MG/ML VIAL ONE; +EpHEDrine SULFATE INJ 50 MG/ML AMP IV PRN; +FENTANYL CITRATE INJ 50 MCG/1 ML 2 ML VIAL IV PRN; +FENTANYL CITRATE INJ 50 MCG/1 ML 2 ML VIAL ONE; -GABA-113 PO; -GLC/500 PO; -GLIM1TAB2 PO; +GLIM2TAB2 PO; -HYDR-5688 PO; +KETOROLAC TROMETHAMINE 30 MG/ML VIAL IV. PRN; +KETOROLAC TROMETHAMINE 30 MG/ML VIAL ONE; +LABETALOL HCL IV 5 MG/ML 20ML IV PRN; +LACTATED RINGER'S 1000ML 1,000 ML IV SCH; +LEVO25TA PO; -LEVO25TA5 PO; +LIDOCAINE HCL 2% 2 ML VIAL (20MG/ML) ONE; +METF1TAB53 PO; +METOCLOPRAMIDE HCL INJ 5 MG/ML 2 ML VIAL IV PRN; +MIDAZOLAM HCL 1 MG/ML 2ML VIAL ONE; +MoRPHine SULFATE 10 MG/ML CARP/VIAL IV PRN; +NRN/600 PO; +ONDANSETRON INJ 2 MG/ML 2 ML VIAL IV PRN; +ONDANSETRON INJ 2 MG/ML 2 ML VIAL ONE; +OXYC-57 PO; +OXYCODONE/ACETAMINOPHEN 5-325 TAB PO PRN; +PHENYLEPHRINE 100MCG/ML 5ML SYR IV PRN; +PROPOFOL IV EMULSION 10 MG/ML 20 ML VIAL IV ONE; -RXC5 PO; +SODIUM CHLORIDE 0.9% 1000ML 1,000 ML IV SCH
--- NOTE | 2017-04-25 09:10 | [facility] Post Operative Brief Note ---
Immediate Operative Summary Operative Date Apr 25, 2017. Pre-Operative Diagnosis Right Inguinal Hernia Post-Operative Diagnosis Same ( direct hernia) Procedure(s) Performed Right Open Inguinal Hernia Repair with Mesh Surgeon Dr. Sean Renee Epic Director Surgeon(s) Sean Diamond PA-C Estimated Blood Loss 10 cc Findings Consistent with Post-Op Diagnosis Specimens none Anesthesia Type General
--- NOTE | 2017-04-25 09:27 | [facility] Operative Report ---
Operative Report Operative Date Apr 25, 2017. Pre-Operative Diagnosis Right Inguinal Hernia Post-Operative Diagnosis Same ( direct hernia) Procedure(s) Performed Right Open Inguinal Hernia Repair with Mesh Surgeon Dr. Sean Renee Transportation Maintenance Worker Surgeon(s) Sean Diamond PA-C Estimated Blood Loss 10 cc Specimens none Anesthesia Type General Complication(s) none Description of Procedure After informed consent was obtained the patient was taken to the operating room and placed in the supine position. After successful placement of the laryngeal mask airway the right groin was sterilely prepped and draped in usual fashion. An inguinal incision was made with 15 blade scalpel and carried down through the soft tissue using electrocautery. The external oblique aponeurosis was skeletonized and opened using a fresh blade. This incision was extended through the external ring using Metzenbaum scissors as well as for several centimeters proximally. Blunt dissection was used to delineate the cord and cord structures in the inguinal canal. A blunt finger was used to gently tease the cord structures off the pubic bone and a Cache drain was placed around them. Once we elevated the cord structures this readily exposed a direct inguinal hernia that was easily reducible. We inspected the cord and cord structures. There was no evidence of an indirect hernia. A piece of polypropylene mesh was cut to appropriate size and placed as an onlay into the floor of the inguinal canal. It was secured with 0 Ethibond. We secured it to Boston's ligament distally the shelving portion of Poupart's ligament laterally in the midline musculature medially. The "arms" of the mesh were wrapped around behind the cord and cord structures and secured underlying muscle. The mesh laid nice and flat and tension free and did not impinge on the cord structures. Thorough irrigation was performed. There was adequate hemostasis. Marcaine was injected around the edges of the mesh for postoperative analgesia. A final irrigation was performed. The external oblique aponeurosis was closed using 2-0 Vicryl in a running fashion. Soft tissue was irrigated and closed using 3-0 Vicryl for the deep layers and 4-0 Monocryl for the skin. Some additional Marcaine was injected around the skin. Skin glue was used as a dressing. The patient was awakened extubated and transferred to recovery in stable condition. My physician's internet marketing assistant was present through the entire case. She helped prep the patient. She help with retraction throughout the case. She help with wound closure as well as dressing placement. I attest to the content of the Intraoperative Record and any orders documented therein. Any exceptions are noted below.
--- NOTE | 2017-04-25 09:37 | Discharge Instructions ---
Discharge Instructions Date of Service Apr 25, 2017. Admission Reason for Admission: Right Inguinal Hernia Discharge Discharge Diagnosis / Problem: Right Inguinal Hernia Discharge Goals Goal(s): Decrease discomfort, Improve function Activity Recommendations Activity Limitations: as noted below Lifting Limitations: no more than 10 pounds Exercise/Sports Limitations: until after follow-up appointment May Resume Sexual Activity: after follow-up appointment Shower/Bathe: tomorrow Driving or Machine Use: resume 1 day after discharge . Instructions / Follow-Up Instructions / Follow-Up Please follow-up with Dr. Renee in the General Surgery Clinic in 1-2 weeks. Please call the office at [phone] to make an appointment if you do not have one already. Please call the office with any questions or concerns. Current Hospital Diet Patient's current hospital diet: Discharge Diet Recommended Diet: Regular Diet Procedures Procedures Performed: Right Open Inguinal Hernia Repair with Mesh Pending Studies Studies pending at discharge: no Laboratory Results Hemoglobin A1c Test 01/30/17 10:12 Range/Units Estimated Average Glucose 117 mg/dl Hemoglobin A1c 5.7 H 4.5-5.6 % Lipid Panel Test 01/30/17 10:12 Range/Units Triglycerides Level 183 H 0-150 mg/dl Cholesterol Level 255 H 0-200 mg/dl HDL Cholesterol 45 mg/dl Cholesterol/HDL Ratio 5.7 LDL Cholesterol, Calculated 173 mg/dl Medical Emergencies . Who to Call and When: Medical Emergencies: If at any time you feel your situation is an emergency, please call 911 immediately. . Non-Emergent Contact Non-Emergency issues call your: Primary Care Provider, Surgeon Call Non-Emergent contact if: temperature is above 101.5, your pain is not controlled, wound has increased drainage, wound has increased redness . "Provider Documentation" section prepared by Sirisha Diamond. . VTE Core Measure Inpt VTE Proph given/why not?: SCD's [place] Drug Monitoring Program Search Results: patient reviewed within database, no issues identified
[2017-04-25 10:10] VITALS: TEMP 36.5
--- NOTE | 2017-04-25 10:23 | Anesthesia Progress Nt - [facility] ---
Anesthesia Post Op Note Date & Time Apr 25, 2017 at 10:22 Vital Signs Pain Intensity: 2 Vital Signs Past 12 Hours Date Time Temp Pulse Resp B/P (MAP) Pulse Ox O2 Delivery O2 Flow Rate FiO2 04/25/17 10:02 74 7 04/25/17 10:02 74 7 97 04/25/17 10:01 153/87 04/25/17 10:00 36.9 73 12 159/93 98 Room Air 04/25/17 09:57 79 20 04/25/17 09:57 80 20 99 04/25/17 09:56 159/93 04/25/17 09:52 75 10 100 04/25/17 09:52 71 10 04/25/17 09:51 152/74 04/25/17 09:47 79 10 04/25/17 09:47 80 10 100 04/25/17 09:46 154/76 04/25/17 09:42 80 13 100 04/25/17 09:42 81 13 04/25/17 09:41 84 16 04/25/17 09:41 84 16 162/90 100 04/25/17 09:36 76 11 159/85 100 04/25/17 09:36 78 11 04/25/17 09:31 79 11 165/82 100 04/25/17 09:31 80 11 04/25/17 09:27 170/85 04/25/17 09:26 36.9 89 12 170/85 98 Diffusion Mask 6 04/25/17 06:56 36.7 76 16 156/74 (101) 97 Room Air Notes Mental Status: alert / awake / arousable, participated in evaluation Pt Amnestic to Procedure: Yes Nausea / Vomiting: adequately controlled Pain: adequately controlled Airway Patency, RR, SpO2: stable & adequate BP & HR: stable & adequate Hydration State: stable & adequate Anesthetic Complications: no major complications apparent
[2017-04-25 10:41] VITALS: BP 163/75; PULSE 75; O2SAT 100
== END | disposition home or self-care (01) ==
LOC: X.SURG 06:33
PROVIDERS: ATTEND Surgery
DX: K40.90 Unilateral inguinal hernia, without obstruction or gangrene, not specified as recurrent (principal); E11.9 Type 2 diabetes mellitus without complications; I10 Essential (primary) hypertension; Z98.52 Vasectomy status; Z98.49 Cataract extraction status, unspecified eye; E78.00 Pure hypercholesterolemia, unspecified; F32.9 Major depressive disorder, single episode, unspecified; E03.9 Hypothyroidism, unspecified; Z98.890 Other specified postprocedural states; Z88.5 Allergy status to narcotic agent; Z79.4 Long term (current) use of insulin; Z79.899 Other long term (current) drug therapy

== ENCOUNTER → 2017-05-20 | Outpatient (CLI) | payer OTHER ==
[~2017-05-20] MED LIST changes: -ATROPINE SULFATE 0.1 MG/ML 5ML SYR IV PRN; -BUPIVACAINE/EPINEPHRINE 0.5% MPF 1:200,000 30 ML VIAL ONE; -CEFAZOLIN 2000MG IV PUSH 15 ML IV SCH; -DEXAMETHASONE SOD INJ 4 MG/ML VIAL IV PRN; -DEXAMETHASONE SOD INJ 4 MG/ML VIAL ONE; -EpHEDrine SULFATE INJ 50 MG/ML AMP IV PRN; -FENTANYL CITRATE INJ 50 MCG/1 ML 2 ML VIAL IV PRN; -FENTANYL CITRATE INJ 50 MCG/1 ML 2 ML VIAL ONE; -KETOROLAC TROMETHAMINE 30 MG/ML VIAL IV. PRN; -KETOROLAC TROMETHAMINE 30 MG/ML VIAL ONE; -LABETALOL HCL IV 5 MG/ML 20ML IV PRN; -LACTATED RINGER'S 1000ML 1,000 ML IV SCH; -LIDOCAINE HCL 2% 2 ML VIAL (20MG/ML) ONE; -METOCLOPRAMIDE HCL INJ 5 MG/ML 2 ML VIAL IV PRN; -MIDAZOLAM HCL 1 MG/ML 2ML VIAL ONE; -MoRPHine SULFATE 10 MG/ML CARP/VIAL IV PRN; -ONDANSETRON INJ 2 MG/ML 2 ML VIAL IV PRN; -ONDANSETRON INJ 2 MG/ML 2 ML VIAL ONE; -OXYC-57 PO; -OXYCODONE/ACETAMINOPHEN 5-325 TAB PO PRN; -PHENYLEPHRINE 100MCG/ML 5ML SYR IV PRN; -PROPOFOL IV EMULSION 10 MG/ML 20 ML VIAL IV ONE; -SODIUM CHLORIDE 0.9% 1000ML 1,000 ML IV SCH
--- NOTE | 2017-05-20 15:46 | DIAGNOSTIC IMAGING REPORT ---
MRI LUMBAR SPINE W/O CONTRAST CLINICAL HISTORY: M54.17,L4R29.898 SEVERE LEFT LEG PAIN AND WEAKNESS. HISTORY OF PRIOR SPINAL SURGERY. TECHNIQUE: Sagittal and axial T1, T2 and STIR images were obtained. COMPARISON STUDY: No previous studies for comparison. OBSERVATIONS: There are postsurgical changes of an L3-L5 spinal fusion with pedicle screw fixation. There is secondary artifact from the spinal hardware. L1-2: There is a 7.5 mm central disc extrusion with secondary deformity of the anterior thecal sac there is no significant foraminal narrowing. L2-3: There is a 9 mm left paracentral disc protrusion with secondary deformity of the thecal sac. There are postlaminectomy changes at the L3 level. There is no significant foraminal narrowing. L3-4: There are postsurgical changes present at this level. There is soft tissue encasing the thecal sac. While likely representing postsurgical epidural fibrosis, a contrast-enhanced study will be necessary to confirm this diagnosis. L4-5: There are postsurgical changes present. There is extensive soft tissue surrounding the thecal sac. Again postsurgical epidural fibrosis is deemed likely. L5-S1: There is a small central disc protrusion. The conus medullaris and cauda equina appear normal. IMPRESSION: 1. Postsurgical changes the L3-L5 levels 2. Central disc protrusion at the L1-2 level, left paracentral disc protrusion at the L2-3 level. There is secondary thecal sac deformity at both levels 3. Soft tissue encasing the thecal sac at the L3-4 and L4-5 levels. Postsurgical epidural fibrosis is suspected Electronically signed by: Antonino Barrett M.D. 05/20/2017 3:44 PM Dictated Date/Time: 05/20/2017 3:35 PM
== END | disposition home or self-care (01) ==
LOC: C.MRIBC 14:30
PROVIDERS: ATTEND Family Medicine
DX: M51.16 Intervertebral disc disorders with radiculopathy, lumbar region (principal); R29.898 Other symptoms and signs involving the musculoskeletal system

== ENCOUNTER → 2017-06-19 | Outpatient (CLI) | payer OTHER ==
[2017-06-19 12:32] LABS: BASO % 0.3 %; BASO ABS # 0.02 K/uL (0-0.2); EOS % 1.4 %; EOS ABS # 0.08 K/uL (0-0.5); HEMATOCRIT 37.4 % (42-52); HEMOGLOBIN 13.6 g/dL (14.0-18.0); IG# 0.01 K/uL (0.00-0.02); LYMPH % 20.8 %; LYMPH ABS # 1.23 K/uL (1.2-3.4); MEAN CELL VOLUME 95.9 fL (80-100); MEAN CORPUSCULAR HEMOGLOBIN 34.9 pg (25-34); MEAN CORPUSCULAR HGB CONC 36.4 g/dl (32-36); MEAN PLATELET VOLUME 10.9 fL (7.4-10.4); MONO % 11.2 %; MONO ABS # 0.66 K/uL (0.11-0.59); NEUT % 66.1 %; NEUT ABS # 3.91 K/uL (1.4-6.5); PLATELET COUNT 239 K/uL (130-400); RED CELL DISTRIBUTION WIDTH CV 14.1 % (11.5-14.5); RED CELL DISTRIBUTION WIDTH SD 49.7 fL (36.4-46.3); WHITE BLOOD COUNT 5.91 K/uL (4.8-10.8)
[2017-06-19 13:59] LABS: BLOOD UREA NITROGEN 18 mg/dl (7-18); CALCIUM 9.4 mg/dl (8.5-10.1); CARBON DIOXIDE 28 mmol/L (21-32); CREATININE 1.57 mg/dl (0.60-1.40); GLUCOSE 318 mg/dl (70-99); POTASSIUM 4.4 mmol/L (3.5-5.1); SODIUM 135 mmol/L (136-145)
== END | disposition home or self-care (01) ==
LOC: C.LABMFLN 10:32
PROVIDERS: ATTEND Orthopaedic Surgery Orthopaedic Surgery of the Spine
DX: Z01.812 Encounter for preprocedural laboratory examination (principal)

== ENCOUNTER → 2017-06-23 | Outpatient (CLI) | payer OTHER ==
[2017-06-23 18:13] LABS: BLOOD UREA NITROGEN 20 mg/dl (7-18); CALCIUM 10.1 mg/dl (8.5-10.1); CARBON DIOXIDE 28 mmol/L (21-32); CREATININE 1.36 mg/dl (0.60-1.40); GLUCOSE 114 mg/dl (70-99); POTASSIUM 4.7 mmol/L (3.5-5.1); SODIUM 139 mmol/L (136-145)
== END | disposition home or self-care (01) ==
LOC: C.LABMFLN 15:22
PROVIDERS: ATTEND Family Medicine
DX: N28.9 Disorder of kidney and ureter, unspecified (principal)

== ENCOUNTER 2017-07-18 05:42 | Inpatient (IN) | payer OTHER ==
[2017-07-17 10:59] VITALS: Ht 177.8 cm; Wt 78.2 kg
[2017-07-18] VITALS (9 sets, daily range): BP systolic 110–163; BP diastolic 69–81; PULSE 60–77; TEMP 36.3–37; O2SAT 95–100
[~2017-07-18] VITALS: Ht 177.8 cm; Wt 78.2 kg
[~2017-07-18 05:42] MED LIST changes: +ACETAMINOPHEN 500 MG TAB PO SCH; -AMIT25TA9 PO; -BUPR200T2 PO; +CEFAZOLIN 2000MG IV PUSH 15 ML IV SCH; +CeleBREX 200 MG CAP PO SCH; +GABAPENTIN 600 MG PO SCH; +SODIUM CHLORIDE 0.9% 1000ML 1,000 ML IV SCH
[2017-07-18] MEDS ORDERED: GABAPENTIN 600 MG PO SCH (06:00)
[2017-07-18] MEDS ORDERED: CEFAZOLIN 2000MG IV PUSH 15 ML IV SCH (06:00)
[2017-07-18] MEDS ORDERED: ACETAMINOPHEN 500 MG TAB PO SCH (06:00)
[2017-07-18] MEDS ORDERED: SODIUM CHLORIDE 0.9% 1000ML 1,000 ML IV SCH ×2 (06:00→09:37)
[2017-07-18] MEDS ORDERED: CeleBREX 200 MG CAP PO SCH (06:00)
[2017-07-18] MEDS ORDERED: MIDAZOLAM HCL 1 MG/ML 2ML VIAL ONE (06:31)
[2017-07-18] MEDS ORDERED: FENTANYL CITRATE INJ 50 MCG/1 ML 2 ML VIAL ONE ×4 (06:31→08:23)
[2017-07-18] MEDS ORDERED: EpINEphrine INJ 1MG/ML AMP 1 MG/ML AMP ONE (07:01)
[2017-07-18] MEDS ORDERED: BACITRACIN 50000 UNIT VIAL ONE (07:01)
[2017-07-18] MEDS ORDERED: BUPIVACAINE 0.5 % 5 MG/1 ML MPF 30ML VIAL ONE (07:02)
[2017-07-18] MEDS ORDERED: EpHEDrine SULFATE INJ 50 MG/ML AMP IV PRN (07:30)
[2017-07-18] MEDS ORDERED: ONDANSETRON INJ 2 MG/ML 2 ML VIAL IV PRN ×2 (07:30→09:45)
[2017-07-18] MEDS ORDERED: HYDROmorphone INJ 1 MG/ML SYR IV PRN (07:30)
[2017-07-18] MEDS ORDERED: ATROPINE SULFATE 0.1 MG/ML 5ML SYR IV PRN (07:30)
[2017-07-18] MEDS ORDERED: LABETALOL HCL IV 5 MG/ML 20ML IV PRN (07:30)
[2017-07-18] MEDS ORDERED: PHENYLEPHRINE 100MCG/ML 5ML SYR IV PRN (07:30)
[2017-07-18] MEDS ORDERED: PROMETHAZINE HCL INJ 12.5 MG in SODIUM CHLORIDE 0.9% 50ML 50 ML IV PRN ×2 (07:30→09:45)
--- NOTE | 2017-07-18 07:34 | History and Physical ---
History & Physical Date July 18, 2017. Chief Complaint Back and leg pain History of Present Illness The patient is a 62 year old male with complaints of back and leg pain Past Medical/Surgical History Medical Problems: (1) Diabetes (2) Diabetic neuropathy (3) Leukemia (4) Lumbar stenosis with neurogenic claudication Surgical Problems: (1) H/O eye surgery Additional History Hepatic Disease: No Endocrine Disorder: No Kidney Disease: No Hypertension: Yes Heart Disease: No Bleeding Tendencies: No Infectious Diseases: No Other: Diabetes Allergies Coded Allergies: Lisinopril (Verified Adverse Reaction, Mild, NAUSEA, 07/18/17) Codeine (Verified Adverse Reaction, Unknown, NAUSEA, 07/18/17) Home Medications Scheduled Atorvastatin (Lipitor), 80 MG PO HS Benazepril (Lotensin), 20 MG PO QAM Cholecalciferol (Vitamin D3), 1 TAB PO QAM Gabapentin (Neurontin), 1 TAB PO TID Glimepiride (Glimepiride), 1 TAB PO BID Levothyroxine Sodium (Synthroid), 25 MCG PO QAM Metformin Hcl (Glucophage Ext Rel), 0.5 TAB PO BID [Sprycel], 0.5 TAB PO HS Physical Examination Skin: warm/dry, no rash Eyes: normal inspection, EOMI, sclerae normal ENT: normal ENT inspection, pharynx normal Head: normocephalic, atraumatic Neck: supple, no adenopathy, trachea midline Respiratory/Chest: lungs clear, normal breath sounds, no respiratory distress Cardiovascular: regular rate, rhythm, no edema, no murmur Abdomen / GI: normal bowel sounds, non tender Back: normal inspection Extremities: normal inspection, normal range of motion Neurologic/Psych: no motor/sensory deficits, alert, normal reflexes, oriented x 3 Diagnosis Lumbar spinal stenosis with neurogenic claudication Plan of Treatment Removal of hardware L3-4 L4-5 decompression and fusion L2-3 possible L1 2
[2017-07-18] MEDS ORDERED: HYDROmorphone INJ 2 MG/ML SYR/VIAL ONE ×2 (08:02→09:40)
[2017-07-18] MEDS ORDERED: ALBUMIN HUMAN 5% 12.5 GM/250 ML VIAL IV ONE (09:06)
[2017-07-18] MEDS ORDERED: FLOSEAL HEMOSTATIC MATRIX 10ML TOP ONE (09:25)
--- NOTE | 2017-07-18 09:36 | [facility] Operative Report ---
Operative Report Operative Date July 18, 2017. Pre-Operative Diagnosis Lumbar spinal stenosis with neurogenic claudication Post-Operative Diagnosis sane as preop Procedure(s) Performed 1. Removal of posterior segmental instrumentation L3 445. #2 expiration fusion L3 4/5. #3 lumbar decompression medial facetectomies foraminotomies L1-L2 3. #4 posterior spinal fusion L2-3. #5 placement posterior segmental instrumentation L2-L5. #6 interbody fusion L2-3. #7 placement of titanium 11 x 26 mm cage L2-3. #8 placement of local harvested autograft in the posterior lateral gutters. #9 placement InFUSE collagen sponge master graft and posterior gutters and ostial amp in the interbody space. Surgeon Dr. Jono Grover Lining Cementer Surgeon(s) Cristopher García PA-C Estimated Blood Loss 600 ml Findings Severe spinal stenosis herniated disc pulposus L2-3 Specimens A: Removed hardware L3-L5 Anesthesia Type General Description of Procedure She was met with preoperatively case discussed all questions addressed. After informed consent obtained patient was taken to the operative suite underwent intubation and placed in a prone position ingesting tablets frame all bony prominences well-padded eyes inspected to ensure no external pressure placed upon the. This point the lumbar spine was prepped and draped in normal sterile fashion. Sharp dissection with the assistance of Bovie cautery was performed down to and exposing the lamina and transverse ease of L2 instrumentation L3-L4- L5 bilaterally. Then proceeded with hardware L3 L4-5 bilaterally explain the fusion mass noting it to be maturing but soft. Then proceeded to perform a complete laminectomy of L2 partial laminectomy felt one addressing severe lateral recess stenosis and foraminal disease. As well as a massive disc herniation at 234 on the left. After this complete pedicle screws were placed in L2 L3-L4-L5 bilaterally with the assistance of fluoroscopy and appropriate size crystal placed. Through a transforaminal approach and left complete discectomy of L2 through was performed endplates created to subcortical bleeding bone in the 11 x 26 mm titanium cage filled with ostium bone graft tapped in position. The rods were then compressed locked in final position bilaterally. The transverse processes of L2-L3 burred to subcortical bleeding bone. Infuse collagen sponge mass graft and local autograft placed in the posterior gutters. 15 round MELISSA drain inserted. Incision was then closed with 1 Vicryl fascia 2-0 Vicryl subtends a 4 Monocryl Steri-Strips sterile dressings placed. Patient will continue PACU stable discrete please note Daniele García present throughout the entire procedure involved in patient positioning complex portions of the surgery and final skin closure. I attest to the content of the Intraoperative Record and any orders documented therein. Any exceptions are noted below.
[2017-07-18] MEDS ORDERED: ONDANSETRON INJ 2 MG/ML 2 ML VIAL ONE ×2 (09:41)
[2017-07-18] MEDS ORDERED: ROCURONIUM BROMIDE 10 MG/ML 5 ML VIAL ONE (09:41)
[2017-07-18] MEDS ORDERED: NEOSTIGMINE METHYLSULFATE 1 MG/ML 10ML VIAL ONE (09:41)
[2017-07-18] MEDS ORDERED: EpHEDrine SULFATE 50MG/5ML SYR ONE (09:41)
[2017-07-18] MEDS ORDERED: DEXAMETHASONE SOD INJ 4 MG/ML VIAL ONE (09:41)
[2017-07-18] MEDS ORDERED: LABETALOL HCL IV 5 MG/ML 20ML ONE (09:41)
[2017-07-18] MEDS ORDERED: PROPOFOL IV EMULSION 10 MG/ML 20 ML VIAL ONE (09:41)
[2017-07-18] MEDS ORDERED: LIDOCAINE HCL 2% 2 ML VIAL (20MG/ML) ONE (09:41)
[2017-07-18] MEDS ORDERED: GLYCOPYRROLATE INJ 0.2 MG/ML VIAL ONE (09:41)
--- NOTE | 2017-07-18 09:42 | DIAGNOSTIC IMAGING REPORT ---
LUMBAR SPINE 2 OR 3 VIEW CLINICAL HISTORY: 62 years-old Male presenting with L3-5 REMOVE HARDWARE/L2-3 DECOMPRESSION/FUSION/POSS L1-2. TECHNIQUE: 3 fluoroscopic image(s) recorded as part of an intraoperative procedure. COMPARISON: 05/20/2017. FINDINGS/IMPRESSION: There has been interval extension of posterior lumbar fusion hardware, which now extends from L2 to L5 with interbody spacers at these levels, previously L3-L5. Normal anatomic alignment. Laminectomy defects noted at these levels. Please see surgical report for further details. Fluoroscopy dosage (mGy): 7.63. Fluoroscopy time: 13.5 seconds. Number of fluoroscopic spot images: 0. Electronically signed by: Fredy Benoit M.D. 07/18/2017 9:40 AM Dictated Date/Time: 07/18/2017 9:39 AM
[2017-07-18] MEDS ORDERED: DO NOT ADMINISTER PNEUMOCOCCAL VACCINE PRN (09:45)
[2017-07-18] MEDS ORDERED: MAGNESIUM HYDROXIDE SUSP 30 ML UDC PO PRN (09:45)
[2017-07-18] MEDS ORDERED: hydrOXYzine HCL 25 MG TAB PO PRN (09:45)
[2017-07-18] MEDS ORDERED: ACETAMINOPHEN 500 MG TAB PO PRN (09:45)
[2017-07-18] MEDS ORDERED: FAMOTIDINE 20 MG TAB PO PRN (09:45)
[2017-07-18] MEDS ORDERED: BISACODYL 10 MG SUPP PR PRN (09:45)
[2017-07-18] MEDS ORDERED: ACETAMINOPHEN IV 100 ML IV PRN (09:45)
[2017-07-18] MEDS ORDERED: SOD PHOSPHATE/SOD BIPHOSPHATE ENEMA 132 ML BTL PR PRN (09:45)
[2017-07-18] MEDS ORDERED: ALUMINUM/MAGNESIUM SUSP 30 ML UDC PO PRN (09:45)
[2017-07-18] MEDS ORDERED: METOCLOPRAMIDE HCL INJ 5 MG/ML 2 ML VIAL IV PRN (09:45)
[2017-07-18] MEDS ORDERED: NALOXONE HCL 0.4 MG/1 ML VIAL/CARP IV PRN ×2 (09:45)
[2017-07-18] MEDS ORDERED: LORAZEPAM 0.5 MG TAB PO PRN (09:45)
[2017-07-18] MEDS ORDERED: DO NOT ADMINISTER FLU VACCINE PRN (09:45)
[2017-07-18] MEDS ORDERED: LORAZEPAM INJ 0.5 MG in SYRINGE 0.75 ML IV PRN (09:45)
[2017-07-18] MEDS: HYDROmorphone HCL 0.5MG/ML 50 ML CASSETTE IV PRN ×3 (10:14→18:56)
[2017-07-18] MEDS: FENTANYL CITRATE INJ 50 MCG/1 ML 2 ML VIAL IV PRN ×2 (10:15→10:23)
--- NOTE | 2017-07-18 10:35 | Anesthesiology Progress Note ---
Anesthesia Post Op Note Date & Time July 18, 2017 at 10:35 Vital Signs Pain Intensity: 4 Vital Signs Past 12 Hours Date Time Temp Pulse Resp B/P (MAP) Pulse Ox O2 Delivery O2 Flow Rate FiO2 07/18/17 10:30 70 17 122/67 100 Nasal Cannula 4 07/18/17 10:20 63 12 132/61 100 Oxymask 10 07/18/17 10:10 74 14 125/55 100 Oxymask 10 07/18/17 10:00 36.4 77 16 130/60 100 Oxymask 10 07/18/17 06:31 36.6 69 18 135/77 99 Room Air Notes Mental Status: alert / awake / arousable, participated in evaluation Pt Amnestic to Procedure: Yes Nausea / Vomiting: adequately controlled Pain: adequately controlled Airway Patency, RR, SpO2: stable & adequate BP & HR: stable & adequate Hydration State: stable & adequate Anesthetic Complications: no major complications apparent Awake, doing well, no complaints. VSS
[2017-07-18] MEDS ORDERED: GLUCOSE 40% GEL 15 GM TUBE PO PRN (12:30)
[2017-07-18] MEDS ORDERED: DEXTROSE 50% 50 ML SYR IV PRN (12:30)
[2017-07-18] MEDS ORDERED: GLUCAGON FOR INJ 1 MG VIAL SQ PRN (12:30)
[2017-07-18] MEDS ORDERED: CARBOHYDRATES FOR HYPOGLYCEMIA PO PRN (12:30)
[2017-07-18] MEDS ORDERED: GLUCOSE 10 TABS/TUBE PO PRN (12:30)
[2017-07-18] MEDS ORDERED: [UNRECOGNIZED DRUG - CODE] PO (12:33)
[2017-07-18 12:48] LABS: HEMATOCRIT 30.1 % (42-52); HEMOGLOBIN 10.8 g/dL (14.0-18.0); MEAN CELL VOLUME 96.2 fL (80-100); MEAN CORPUSCULAR HEMOGLOBIN 34.5 pg (25-34); MEAN CORPUSCULAR HGB CONC 35.9 g/dl (32-36); MEAN PLATELET VOLUME 9.5 fL (7.4-10.4); PLATELET COUNT 117 K/uL (130-400); RED CELL DISTRIBUTION WIDTH CV 13.7 % (11.5-14.5); RED CELL DISTRIBUTION WIDTH SD 48.4 fL (36.4-46.3); WHITE BLOOD COUNT 5.74 K/uL (4.8-10.8)
[2017-07-18] MEDS: SODIUM CHLORIDE 0.9% 1000ML 1,000 ML IV SCH ×3 (12:55→23:47)
[2017-07-18] MEDS: CEFAZOLIN IV 2,000 MG in SYRINGE 0 ML IV SCH ×2 (13:15→19:29)
[2017-07-18 13:18] LABS: CALCIUM 8.2 mg/dl (8.5-10.1); CREATININE 1.13 mg/dl (0.60-1.40); POTASSIUM 3.8 mmol/L (3.5-5.1)
[2017-07-18] MEDS: GABAPENTIN 600 MG TAB PO SCH ×3 (13:19→20:56)
[2017-07-18 13:27] LABS: EOS % 0.2 %; EOS ABS # 0.01 K/uL (0-0.5); IG# 0.01 K/uL (0.00-0.02); LYMPH % 9.6 %; LYMPH ABS # 0.58 K/uL (1.2-3.4); MONO % 1.5 %; MONO ABS # 0.09 K/uL (0.11-0.59); NEUT % 88.5 %; NEUT ABS # 5.38 K/uL (1.4-6.5)
[2017-07-18] MEDS ORDERED: CLONIDINE HCL 0.1 MG TAB PO PRN (13:30)
[2017-07-18] MEDS ORDERED: RXC5 PO (14:33)
--- NOTE | 2017-07-18 14:34 | Discharge Instructions ---
Discharge Instructions Date of Service July 18, 2017. Admission Reason for Admission: Lumbar Spinal Stenosis Discharge Discharge Diagnosis / Problem: lumbars stenosis Discharge Goals Goal(s): Improve function, Increase independence Activity Recommendations Activity Limitations: per Instructions/Follow-up section . Instructions / Follow-Up Instructions / Follow-Up ACTIVITY RECOMMENDATIONS: SELF CARE INSTRUCTIONS AFTER THORACIC/LUMBAR FUSIONS 1. You may walk to your tolerance. It is good exercise for your legs and back. Expect some back and intermittent leg aches and pains. 2. You may perform "counter-top" level activities (make a sandwich, ely with a project, etc.). 3. No bending or lifting of more than 10 pounds or back twisting of any nature (roll like a log when turning in bed). 4. You may ride in a car for 20-30 minutes at a time. No driving until after your first visit with your doctor. 5. Frequent changes of position and restricting sitting to 30 minutes at a time will help limit the amount of back spasms and stiffness you may experience. 6. You may discontinue the use of ambulatory aids (cane, crutches, etc.) once your strength and confidence allow. 7. You may global supply chain director the shower and let water strike your incision when you arrive home at least once daily. Do not take a tub bath, sit in a hot tub or go into a swimming pool until after your first recheck in the office. SPECIAL CARE INSTRUCTIONS: VERY IMPORTANT TO READ AND REVIEW A. Your surgical incision has been closed with a cosmetic suture under the skin that will dissolve in about 6 weeks. In 14 days, you can use a pair of clean scissors and cut the suture that is left outside of the skin at the ends of your incision. 1. The small skin tapes can be removed 7 days after surgery if they have not fallen off by that point. 2. You may keep the wound open to air as much as possible to promote healing after post-op day number 5 unless told otherwise by your doctor. 3. If you think the wound looks like it is becoming infected (redness or worsening drainage) and/or you are experiencing fever, chill or worsening back pain and muscle spasms, contact the office so that we may evaluate you as soon as possible. B. Complications are uncommon, but please contact us if you have any signs or symptoms of: 1. wound infection (fever higher than 102.5 degrees F, redness, separation of wound, drainage, or increasing pain from the incision) 2. blood clots in legs (pain, swelling, redness and warmth in legs) 3. urinary tract infection (fever higher than 102.5 degrees F, burning upon urination or increased frequency of urination) 4. nerve problems (inability to walk on your toes or heels, numbness, loss of bowel or bladder control) 5. any other symptoms that concern you C. Please call the office at if you have any concerns or questions about your operation or recovery. D. No smoking! Smoking drastically decreases the chance of a solid fusion. E. Do not take any anti-inflammatory medications (Indocin, Advil, Motrin, Aspirin, Naprosyn, etc.) as these may inhibit the chance of a solid fusion. Tylenol is okay to take for pain. MANAGING PAIN AFTER SPINAL SURGERY 1. Narcotic medication is intended for short-term use and will be provided for surgical pain. Surgical pain usually lasts for a period of 4-6 weeks. Narcotic medication includes Percocet, Vicodin, Darvocet, Tylenol #3 or Lortab. 2. Longer-term pain is more appropriately treated with non-narcotic medication such as Tylenol ES. 3. Muscle spasm is not appropriately treated with narcotics. Muscle relaxers such as Soma, Flexeril or Skelaxin can be used along with Tylenol ES. 4. Remember that we all live with some "aches and pains". This is not unusual or uncommon after an injury or as we get older. a. Back pain is expected and may include muscle spasms for 4 to 6 weeks after surgery. The pain should gradually improve. If the pain worsens for no apparent reason, please contact the office. b. Intermittent leg pain may also be experienced and should not be concerned about unless it worsens for no apparent reason. If so, please contact the office. 5. We will provide appropriate medication within the normal guidelines of their prescribed use. We will also be very cautious and aware of potential abuse and extended duration of patients' medication needs. a. Pain medications are for your comfort and to assist with sleep and rest so that the tissue can heal. They are not provided in order to return to normal activity and should not be used through the day. To do so or worsening pain at night can result from ongoing tissue damage and development of tolerance to the prescribed medicine. 6. Please allow 2-3 days to process refills. Prescriptions will not be mailed but must be picked up at the office. FOLLOW UP VISIT: Keep your scheduled follow-up appointment. Any questions, please call the office at . Current Hospital Diet Patient's current hospital diet: Diabetes Type 2 Diet Discharge Diet Recommended Diet: Regular Diet Procedures Procedures Performed: 1. Removal of posterior segmental instrumentation L3 445. #2 expiration fusion L3 4/5. #3 lumbar decompression medial facetectomies foraminotomies L1-L2 3. #4 posterior spinal fusion L2-3. #5 placement posterior segmental instrumentation L2-L5. #6 interbody fusion L2-3. #7 placement of titanium 11 x 26 mm cage L2-3. #8 placement of local harvested autograft in the posterior lateral gutters. #9 placement InFUSE collagen sponge master graft and posterior gutters and ostial amp in the interbody space. Pending Studies Studies pending at discharge: no Medical Emergencies . Who to Call and When: Medical Emergencies: If at any time you feel your situation is an emergency, please call 911 immediately. . Non-Emergent Contact Non-Emergency issues call your: Primary Care Provider . "Provider Documentation" section prepared by Jose Grover. .
--- NOTE | 2017-07-18 15:34 | Medical Consult ---
Consultation Date of Consultation: July 18, 2017. Attending Physician: Jose Grover D.O. Reason for Consultation: Medical management History of Present Illness Pt is 62 y/o M with PMH CML, DM II, HTN, HLD seen in medical consult after lumbar surgery by Dr. Grover today. Patient complaining of some nausea no vomiting. Has AIRPLANE FLIGHT ATTENDANT pump states pain is moderately controlled at this time. Patient denies passing any gas since surgery. Last BM yesterday. Has Cook cath. Patient states returned sensation and no paresthesias to bilateral lower extremities. Reports follows with Dr Bishop -oncology [place] for CML and reports is in remission, and reports chronic decreased appetite. Denies fever/ chills, diaphoresis, WILEY, dizziness, syncope, vision changes, neck pain, CP, SOB , orthopnea, palpitations, cough, sore throat, choking, abdominal pain, extremity edema, rashes, previous urinary symptoms. Past Medical/Surgical History Medical Problems: (1) CML (chronic myelocytic leukemia) Status: Chronic (2) Diabetes Status: Chronic (3) Diabetic neuropathy Status: Chronic (4) HLD (hyperlipidemia) Status: Chronic (5) HTN (hypertension) Status: Chronic (6) Hx of retinal detachment Permanent Comment: right eye - s/p surgical repair Status: Resolved (7) Lumbar stenosis with neurogenic claudication Status: Chronic (8) Occasional tremors Status: Chronic Surgical Problems: (1) H/O eye surgery Status: Resolved (2) History of carpal tunnel surgery Status: Resolved (3) Hx of cardiac cath Permanent Comment: 2010 - no stents needed Status: Resolved (4) Hx of inguinal hernia repair Status: Resolved (5) Hx of umbilical hernia repair Status: Resolved (6) Hx of vasectomy Status: Resolved Family History Diabetes mellitus Heart disease Hypertension Social History Smoking Status: Never Smoker Smokeless Tobacco Use: No Alcohol Use: 2-3 beers a week Drug Use: none Marital Status: Housing Status: lives with family Occupation Status: employed Allergies Coded Allergies: Lisinopril (Verified Adverse Reaction, Mild, NAUSEA, 07/18/17) Codeine (Verified Adverse Reaction, Unknown, NAUSEA, 07/18/17) Home Medications Reported Home Medications Medications Dose Route/Sig Max Daily Dose Days Date Category Sprycel (Dasatinib) 50 Mg Tab 1 Tab PO DAILY 07/18/17 Reported Lipitor (Atorvastatin Calcium) 80 Mg Tab 80 Mg PO HS 04/21/17 Reported Glimepiride 2 Mg Tab 1 Tab PO BID 04/21/17 Reported Lotensin (Benazepril HCl) 20 Mg Tab 20 Mg PO QAM 04/21/17 Reported Synthroid (Levothyroxine Sodium) 25 Mcg Tab 25 Mcg PO QAM 04/21/17 Reported Neurontin (Gabapentin) 600 Mg Tab 1 Tab PO TID 04/21/17 Reported Glucophage Ext Rel (Metformin Hcl) 1,000 Mg Tab 1 Tab PO BID 04/21/17 Reported Vitamin D3 (Cholecalciferol) 1,000 Unit Tab 1 Tab PO QAM 04/21/17 Reported Current Inpatient Medications Current Inpatient Medications Medications (Trade) Dose Ordered Sig/Mike Route Start Time Stop Time Status Last Admin Dose Admin Cefazolin Sodium 15 ml @ 3.75 mls/ min PREOP IV 07/18/17 06:00 07/18/17 18:00 Acetaminophen (Tylenol Tab) 1,000 mg PREOP PO 07/18/17 06:00 07/18/17 18:00 07/18/17 06:46 1,000 MG Celecoxib (CeleBREX CAP) 200 mg PREOP PO 07/18/17 06:00 07/18/17 18:00 07/18/17 06:45 200 MG Gabapentin (Neurontin Cap) 600 mg PREOP PO 07/18/17 06:00 07/18/17 18:00 07/18/17 06:45 600 MG Fentanyl Citrate (Fentanyl Inj) 25 mcg Q5M PRN IV 07/18/17 07:30 07/18/17 12:30 07/18/17 10:23 25 MCG Hydromorphone HCl (Dilaudid Inj) 0.5 mg Q5M PRN IV 07/18/17 07:30 07/18/17 12:30 Ondansetron HCl (Zofran Inj) 4 mg ONE PRN IV 07/18/17 07:30 07/18/17 12:30 Promethazine HCl 12.5 mg/Sodium Chloride 50.5 ml @ 202 mls/hr ONE PRN IV 07/18/17 07:30 07/18/17 12:30 Labetalol HCl (Normodyne IV) 5 mg Q5M PRN IV 07/18/17 07:30 07/18/17 12:30 Ephedrine Sulfate (EpHEDrine SULFATE INJ) 5 mg Q5M PRN IV 07/18/17 07:30 07/18/17 12:30 Atropine Sulfate (Atropine Sulfate 0.1mg/ml Inj) 0.5 mg Q1M PRN IV 07/18/17 07:30 07/18/17 12:30 Phenylephrine HCl (Jr-Synephrine 500MCG/5ML Syr) 100 mcg Q5M PRN IV 07/18/17 07:30 07/18/17 12:30 Promethazine HCl 12.5 mg/Sodium Chloride 50.5 ml @ 202 mls/hr Q6H PRN IV 07/18/17 09:45 08/17/17 09:44 Ondansetron HCl (Zofran Inj) 4 mg Q6H PRN IV 07/18/17 09:45 08/17/17 09:44 07/18/17 11:19 4 MG Metoclopramide HCl (Reglan Inj) 10 mg Q6H PRN IV 07/18/17 09:45 08/17/17 09:44 Lorazepam (Ativan Tab) 0.5 mg Q8H PRN PO 07/18/17 09:45 08/17/17 09:44 Lorazepam 0.5 mg/ Syringe 1 ml @ 1 mls/min Q8H PRN IV 07/18/17 09:45 08/17/17 09:44 Pneumococcal Polysaccharide Vaccine 1 ea PRN PRN N/A 07/18/17 09:45 08/17/17 09:44 Influenza Virus Vacc Triv Types A&B 1 ea PRN PRN N/A 07/18/17 09:45 08/17/17 09:44 Polyethylene (Miralax Powder Packet) 17 gm Q6 PO 07/20/17 06:00 08/19/17 05:59 Bisacodyl (Dulcolax Supp) 10 mg DAILY PRN ME 07/18/17 09:45 08/17/17 09:44 Magnesium Hydroxide (Milk Of Magnesia Susp) 30 ml DAILY PRN PO 07/18/17 09:45 08/17/17 09:44 Hydromorphone HCl (Dilaudid Inj) 0.5-1mg prn moder... Q3H PRN IV 07/19/17 06:00 08/02/17 05:59 Oxycodone HCl (Roxicodone Immediate Rel Tab) 5-10mg prn moderate to sev... Q4H PRN PO 07/19/17 06:00 08/02/17 05:59 Cefazolin Sodium 2000 mg/Syringe 15 ml @ 3.75 mls/ min Q8H IV 07/18/17 12:00 07/18/17 20:03 Sodium Chloride 1,000 ml @ 150 mls/hr Q6H40M IV 07/18/17 12:00 08/17/17 11:59 Acetaminophen (Tylenol Tab) 1,000 mg Q8H PRN PO 07/18/17 09:45 08/17/17 09:44 Acetaminophen 100 ml @ 400 mls/hr Q8H PRN IV 07/18/17 09:45 08/17/17 09:44 Naloxone HCl (Narcan Inj) 0.1 mg Q5M PRN IV 07/18/17 09:45 08/17/17 09:44 Senna/Docusate Sodium (Senokot S Tab) 2 tab HS PO 07/18/17 21:00 08/17/17 20:59 Sodium Biphosphate/ Sodium Phosphate (Fleet Enema) 132 ml ONE PRN ME 07/18/17 09:45 08/17/17 09:44 Hydroxyzine HCl (Vistaril Tab) 25 mg Q8H PRN PO 07/18/17 09:45 08/17/17 09:44 Al Hydroxide/Mg Hydroxide (Maalox Susp) 30 ml Q6H PRN PO 07/18/17 09:45 08/17/17 09:44 Famotidine (Pepcid Tab) 20 mg Q12 PRN PO 07/18/17 09:45 08/17/17 09:44 Diphenhydramine HCl (Benadryl Cap) 25 mg Q6H PRN PO 07/18/17 09:45 08/17/17 09:44 Miscellaneous Information (Discontinue AIRPLANE FLIGHT ATTENDANT) 1 ea 0600 ONCE N/A 07/19/17 06:00 07/19/17 06:01 Naloxone HCl (Narcan Inj) 0.1 mg Q5M PRN IV 07/18/17 09:45 07/19/17 06:00 Hydromorphone HCl (Dilaudid Court Recorder) 25 mg PRN PRN IV 07/18/17 09:45 07/19/17 06:00 07/18/17 11:08 25 MG Sodium Chloride 1,000 ml @ 15 mls/hr Q24H IV 07/18/17 09:37 07/19/17 06:00 Atorvastatin Calcium (Lipitor Tab) 80 mg HS PO 07/18/17 21:00 08/17/17 20:59 Gabapentin (Neurontin Tab) 600 mg TID PO 07/18/17 14:00 08/17/17 13:59 Levothyroxine Sodium (Synthroid Tab) 25 mcg DAILYBB PO 07/19/17 06:00 08/18/17 05:59 Enalapril Maleate (Vasotec Tab) 20 mg QAM PO 07/19/17 09:00 08/18/17 08:59 Insulin Glargine (Lantus Solostar Pen) 10 units Q12 SC 07/18/17 21:00 08/17/17 20:59 UNV Insulin Aspart (novoLOG ASPART) SLIDING SCALE If C... ACHS SC 07/18/17 17:15 08/17/17 17:14 UNV Glucose (Glucose 40% Gel) 15-30 GRAMS 15 GRAMS... UD PRN PO 07/18/17 12:30 08/17/17 12:29 UNV Glucose (Glucose Chew Tab) 4-8 Tablets 4 Tabl... UD PRN PO 07/18/17 12:30 08/17/17 12:29 UNV Dextrose (Dextrose 50% 50ML Syringe) 25-50ML 25ML FOR ... UD PRN IV 07/18/17 12:30 08/17/17 12:29 UNV Glucagon (Glucagon Inj) 1 mg UD PRN SQ 07/18/17 12:30 08/17/17 12:29 UNV Carbohydrates (Carbohydrates For Hypoglycemia) 15-30 GRAMS 15 grams if BSG 54-69... UD PRN PO 07/18/17 12:30 08/17/17 12:29 UNV Review of Systems See HPI for pertinent positives & negatives. All other systems reviewed and were otherwise negative Physical Exam Date Time Temp Pulse Resp B/P (MAP) Pulse Ox O2 Delivery O2 Flow Rate FiO2 07/18/17 12:10 61 16 163/69 (100) 100 Nasal Cannula 4.0 07/18/17 11:40 16 134/80 (98) 100 4.0 07/18/17 11:10 36.4 61 16 127/70 (89) 100 Nasal Cannula 4.0 07/18/17 11:10 100 Nasal Cannula 4.0 07/18/17 11:10 100 Nasal Cannula 4.0 07/18/17 10:50 58 12 127/63 100 Nasal Cannula 4 07/18/17 10:40 36.6 61 12 131/71 98 Nasal Cannula 4 07/18/17 10:30 70 17 122/67 100 Nasal Cannula 4 07/18/17 10:20 63 12 132/61 100 Oxymask 10 07/18/17 10:10 74 14 125/55 100 Oxymask 10 07/18/17 10:00 36.4 77 16 130/60 100 Oxymask 10 07/18/17 06:31 36.6 69 18 135/77 99 Room Air General Appearance: WD/WN, no apparent distress Head: normocephalic, atraumatic Eyes: normal inspection, PERRL, sclerae normal ENT: hearing grossly normal, pharynx normal, + pertinent finding (mucous membranes moist) Neck: supple, trachea midline Respiratory/Chest: lungs clear, normal breath sounds, no respiratory distress Cardiovascular: regular rate, rhythm, no murmur, normal peripheral pulses Abdomen/GI: non tender, soft, + pertinent finding (hypoactive BS) Genitourinary - Male: + pertinent finding (Cook cath in place - draining clear yellow urine) Back: + pertinent finding (+surgical dressing in place to lumbar region, drain with some red blood noted) Extremities/Musculoskelatal: normal capillary refill, no pedal edema, + pertinent finding (pedal pushes and pulls intact bilaterally, distal pulses intact, sensation to light touch intact bilaterally) Neurologic/Psych: alert, normal mood/affect, oriented x 3 Skin: warm/dry Laboratory Results Last 24 Hours Test 07/18/17 06:23 07/18/17 10:20 07/18/17 12:34 Bedside Glucose 118 mg/dl 181 mg/dl White Blood Count 5.74 K/uL Red Blood Count 3.13 M/uL Hemoglobin 10.8 g/dL Hematocrit 30.1 % Mean Corpuscular Volume 96.2 fL Mean Corpuscular Hemoglobin 34.5 pg Mean Corpuscular Hemoglobin Concent 35.9 g/dl RDW Standard Deviation 48.4 fL RDW Coefficient of Variation 13.7 % Platelet Count 117 K/uL Mean Platelet Volume 9.5 fL Assessment & Plan Pt post op day# 0 S/P Lumbar decompression and spinal fusion by Dr Grover -pain management per ortho -wound management per ortho -PT/OT as appropriate -DVT prophylaxis per ortho -incentive spirometry -monitor H&H for acute blood loss anemia DM II HA1c in AM -hold glimepiride, metformin -basal, bolus insulin per protocol CML Oncologist - Dr Epi Bishop - [place]. WBC: 10.8, Plt: 117 -Spoke to Dr Bishop's office and Dr Bishop recommends pt holds Sprycel for 1-2 weeks HTN -continue benazepril -clonidine prn HTN HLD -continue statin Hx Renal insufficiency Out pt lab Cr: 1.3 in 03/2017. current Cr: 1.1 -monitor renal functions DVT Prophylaxis -per ortho Disposition admitted med-surg Full Code Follows with Dr Drew Coreas for routine care Pt was seen with Dr Becerra. See addendum Additional Copies To Drew Coreas M.D.
[2017-07-18] MEDS ORDERED: GLIMEPIRIDE 2 MG TAB PO SCH (17:45)
[2017-07-18] MEDS: INSULIN ASPART 100 UNITS/ML 3 ML PEN SC SCH ×2 (18:56→20:58)
[2017-07-18] MEDS: ATORVASTATIN 40 MG TAB PO SCH (20:56)
[2017-07-18] MEDS: DOCUSATE SODIUM/SENNA 50/8.6MG TAB PO SCH (20:56)
[2017-07-18] MEDS: INSULIN GLARGINE SOLOSTAR 100 UNITS/ML 3 ML PEN SC SCH (20:58)
[2017-07-19 03:54] VITALS: BP 149/64; PULSE 72; TEMP 36.7; O2SAT 96
[2017-07-19] MEDS ORDERED: NURSING DECISION MEDICATION ORDER SCH (04:15)
[2017-07-19] MEDS: LEVOTHYROXINE 25 MCG TAB PO SCH (05:57)
[2017-07-19] MEDS ORDERED: HYDROmorphone INJ 0.5 MG/0.5 ML SYR IV PRN (06:00)
[2017-07-19] MEDS ORDERED: DC PCA ONE (06:00)
[2017-07-19 06:41] LABS: EOS % 0.1 %; EOS ABS # 0.01 K/uL (0-0.5); HEMATOCRIT 26.7 % (42-52); HEMOGLOBIN 9.3 g/dL (14.0-18.0); IG# 0.02 K/uL (0.00-0.02); LYMPH % 13.6 %; MEAN CELL VOLUME 96.7 fL (80-100); MEAN CORPUSCULAR HEMOGLOBIN 33.7 pg (25-34); MEAN CORPUSCULAR HGB CONC 34.8 g/dl (32-36); MEAN PLATELET VOLUME 9.8 fL (7.4-10.4); MONO % 9.6 %; MONO ABS # 0.85 K/uL (0.11-0.59); NEUT % 76.5 %; NEUT ABS # 6.75 K/uL (1.4-6.5); PLATELET COUNT 134 K/uL (130-400); RED CELL DISTRIBUTION WIDTH CV 13.9 % (11.5-14.5); RED CELL DISTRIBUTION WIDTH SD 48.1 fL (36.4-46.3); WHITE BLOOD COUNT 8.83 K/uL (4.8-10.8)
[2017-07-19 06:58] LABS: HEMOGLOBIN A1C 5.1 % (4.5-5.6)
[2017-07-19 07:21] LABS: CALCIUM 8.2 mg/dl (8.5-10.1); CREATININE 0.88 mg/dl (0.60-1.40); POTASSIUM 3.8 mmol/L (3.5-5.1)
[2017-07-19 07:41] VITALS: BP 127/72; PULSE 64; TEMP 36.9; O2SAT 98
[2017-07-19] MEDS: INSULIN ASPART 100 UNITS/ML 3 ML PEN SC SCH ×4 (08:00→21:00)
[2017-07-19] MEDS: GABAPENTIN 600 MG TAB PO SCH ×3 (09:24→21:17)
[2017-07-19] MEDS: ENALAPRIL MALEATE 10 MG TAB PO SCH (09:25)
[2017-07-19] MEDS: INSULIN GLARGINE SOLOSTAR 100 UNITS/ML 3 ML PEN SC SCH (09:32)
[2017-07-19] MEDS: OXYCODONE HCL IR 5 MG TAB (IMMEDIATE RELEASE) PO PRN ×2 (09:33→12:41)
[2017-07-19 11:01] VITALS: BP 127/77; PULSE 64; O2SAT 98
--- NOTE | 2017-07-19 11:07 | Progress Note ---
Progress Note Date of Service July 19, 2017. Progress Note Patient's back pain is well controlled leg symptoms markedly improved. Vital signs stable. On exam his good strength testing appears comfortable. Assessment status post lumbar decompression fusion per plan at this time will continue physical therapy advance his bowel regiment anticipate discharge home in next few days.
[2017-07-19 11:10] VITALS: BP 124/65; PULSE 73; TEMP 37; O2SAT 100
[2017-07-19 15:23] VITALS: BP 119/68; PULSE 66; TEMP 36.9; O2SAT 100
[2017-07-19] MEDS: KETOROLAC TROMETHAMINE 30 MG/ML VIAL IV PRN (15:56)
[2017-07-19] MEDS ORDERED: NURSING VERBAL MED ORDER ONE (18:00)
[2017-07-19] MEDS: POLYETHYLENE (MIRALAX) 17 GM PACK PO SCH (19:29)
[2017-07-19] MEDS: ATORVASTATIN 40 MG TAB PO SCH (21:18)
[2017-07-19] MEDS: DOCUSATE SODIUM/SENNA 50/8.6MG TAB PO SCH (21:18)
[2017-07-19 23:12] VITALS: BP 127/66; PULSE 73; TEMP 37.3; O2SAT 97
[2017-07-20] MEDS: POLYETHYLENE (MIRALAX) 17 GM PACK PO SCH ×2 (00:28→05:41)
[2017-07-20] MEDS: OXYCODONE HCL IR 5 MG TAB (IMMEDIATE RELEASE) PO PRN ×3 (01:09→12:37)
[2017-07-20] MEDS: LEVOTHYROXINE 25 MCG TAB PO SCH (05:41)
--- NOTE | 2017-07-20 05:55 | Progress Note ---
Medicine Progress Note Date & Time of Visit: July 20, 2017 at 05:51. Subjective late entry date of service 07/19/17 resting in bed, comfortable denies chest pain, dyspnea, palpitations, dizziness, nausea ambulating with no problems denies other symptoms Objective Last 8 Hrs Date Time Temp Pulse Resp B/P (MAP) Pulse Ox O2 Delivery O2 Flow Rate FiO2 07/19/17 23:12 37.3 73 18 127/66 (86) 97 Room Air Physical Exam: General- oriented x 3,not in distress, speaks in sentences with no effort Head- atraumatic Eyes- anicteric ENT- oropharynx clear Neck- supple, no JVD Lungs- clear BS BL Heart- regular rhythm; no murmur, normal rate Abdomen- normal bowel sounds, soft, nontender, non distended Extremities- no pretibial edema, no calf tenderness; peripheral pulses intact Neuro- alert, oriented x 3;no gross focal deficits Skin- warm & dry Laboratory Results: Last 24 Hours Test 07/19/17 06:07 07/19/17 08:04 07/19/17 11:55 07/19/17 16:59 White Blood Count 8.83 K/uL Red Blood Count 2.76 M/uL Hemoglobin 9.3 g/dL Hematocrit 26.7 % Mean Corpuscular Volume 96.7 fL Mean Corpuscular Hemoglobin 33.7 pg Mean Corpuscular Hemoglobin Concent 34.8 g/dl Platelet Count 134 K/uL Mean Platelet Volume 9.8 fL Neutrophils (%) (Auto) 76.5 % Lymphocytes (%) (Auto) 13.6 % Monocytes (%) (Auto) 9.6 % Eosinophils (%) (Auto) 0.1 % Basophils (%) (Auto) 0.0 % Neutrophils # (Auto) 6.75 K/uL Lymphocytes # (Auto) 1.20 K/uL Monocytes # (Auto) 0.85 K/uL Eosinophils # (Auto) 0.01 K/uL Basophils # (Auto) 0.00 K/uL RDW Standard Deviation 48.1 fL RDW Coefficient of Variation 13.9 % Immature Granulocyte % (Auto) 0.2 % Immature Granulocyte # (Auto) 0.02 K/uL Sodium Level 141 mmol/L Potassium Level 3.8 mmol/L Chloride Level 109 mmol/L Carbon Dioxide Level 28 mmol/L Anion Gap 4.0 mmol/L Blood Urea Nitrogen 12 mg/dl Creatinine 0.88 mg/dl Est Creatinine Clear Calc Drug Dose 88.7 ml/min Estimated GFR () 106.0 Estimated GFR (Non- 91.4 BUN/Creatinine Ratio 13.6 Random Glucose 83 mg/dl Estimated Average Glucose 100 mg/dl Hemoglobin A1c 5.1 % Calcium Level 8.2 mg/dl Bedside Glucose 80 mg/dl 121 mg/dl 89 mg/dl Test 07/19/17 20:49 Bedside Glucose 176 mg/dl Assessment & Plan Pt post op day# 1 S/P Lumbar decompression and spinal fusion by Dr Grover - stable overall -pain management per ortho -DVT prophylaxis per ortho -incentive spirometry -monitor H&H for acute blood loss anemia DM II HA1c in AM -hold glimepiride, metformin -basal, bolus insulin per protocol --> reduce Insulin to avoid hypoglycemia CML Oncologist - Dr Epi Bishop - [place]. WBC: 10.8, Plt: 117 -Spoke to Dr Bishop's office and Dr Bishop recommends pt holds Sprycel for 1-2 weeks HTN -continue benazepril -clonidine prn HLD -continue statin Hx Renal insufficiency Out pt lab Cr: 1.3 in 03/2017. current Cr: 1.1 - crea stable DVT Prophylaxis -per ortho Thank you for this consultation. We will follow the patient with you during their hospital stay. You can reach a member of the [facility] Hospitalist Team 23/09 via pager @ . Current Inpatient Medications: Current Inpatient Medications Medications (Trade) Dose Ordered Sig/Mike Route Start Time Stop Time Status Last Admin Dose Admin Promethazine HCl 12.5 mg/Sodium Chloride 50.5 ml @ 202 mls/hr Q6H PRN IV 07/18/17 09:45 08/17/17 09:44 07/18/17 13:15 202 MLS/HR Ondansetron HCl (Zofran Inj) 4 mg Q6H PRN IV 07/18/17 09:45 08/17/17 09:44 07/18/17 11:19 4 MG Metoclopramide HCl (Reglan Inj) 10 mg Q6H PRN IV 07/18/17 09:45 08/17/17 09:44 Lorazepam (Ativan Tab) 0.5 mg Q8H PRN PO 07/18/17 09:45 08/17/17 09:44 Lorazepam 0.5 mg/ Syringe 1 ml @ 1 mls/min Q8H PRN IV 07/18/17 09:45 08/17/17 09:44 Pneumococcal Polysaccharide Vaccine 1 ea PRN PRN N/A 07/18/17 09:45 08/17/17 09:44 Influenza Virus Vacc Triv Types A&B 1 ea PRN PRN N/A 07/18/17 09:45 08/17/17 09:44 Bisacodyl (Dulcolax Supp) 10 mg DAILY PRN RI 07/18/17 09:45 08/17/17 09:44 Magnesium Hydroxide (Milk Of Magnesia Susp) 30 ml DAILY PRN PO 07/18/17 09:45 08/17/17 09:44 07/20/17 05:45 30 ML Hydromorphone HCl (Dilaudid Inj) 0.5-1mg prn moder... Q3H PRN IV 07/19/17 06:00 08/02/17 05:59 Oxycodone HCl (Roxicodone Immediate Rel Tab) 5-10mg prn moderate to sev... Q4H PRN PO 07/19/17 06:00 08/02/17 05:59 07/20/17 05:42 10 MG Acetaminophen (Tylenol Tab) 1,000 mg Q8H PRN PO 07/18/17 09:45 08/17/17 09:44 Acetaminophen 100 ml @ 400 mls/hr Q8H PRN IV 07/18/17 09:45 08/17/17 09:44 Naloxone HCl (Narcan Inj) 0.1 mg Q5M PRN IV 07/18/17 09:45 08/17/17 09:44 Senna/Docusate Sodium (Senokot S Tab) 2 tab HS PO 07/18/17 21:00 08/17/17 20:59 07/19/17 21:18 2 TAB Sodium Biphosphate/ Sodium Phosphate (Fleet Enema) 132 ml ONE PRN RI 07/18/17 09:45 08/17/17 09:44 Hydroxyzine HCl (Vistaril Tab) 25 mg Q8H PRN PO 07/18/17 09:45 08/17/17 09:44 Al Hydroxide/Mg Hydroxide (Maalox Susp) 30 ml Q6H PRN PO 07/18/17 09:45 08/17/17 09:44 Famotidine (Pepcid Tab) 20 mg Q12 PRN PO 07/18/17 09:45 08/17/17 09:44 07/18/17 23:51 20 MG Diphenhydramine HCl (Benadryl Cap) 25 mg Q6H PRN PO 07/18/17 09:45 08/17/17 09:44 Atorvastatin Calcium (Lipitor Tab) 80 mg HS PO 07/18/17 21:00 08/17/17 20:59 07/19/17 21:18 80 MG Gabapentin (Neurontin Tab) 600 mg TID PO 07/18/17 14:00 08/17/17 13:59 07/19/17 21:17 600 MG Levothyroxine Sodium (Synthroid Tab) 25 mcg DAILYBB PO 07/19/17 06:00 08/18/17 05:59 07/20/17 05:41 25 MCG Enalapril Maleate (Vasotec Tab) 20 mg QAM PO 07/19/17 09:00 08/18/17 08:59 07/19/17 09:25 20 MG Insulin Aspart (novoLOG ASPART) SLIDING SCALE If C... ACHS SC 07/18/17 17:15 08/17/17 17:14 07/19/17 12:40 1 UNITS Glucose (Glucose 40% Gel) 15-30 GRAMS 15 GRAMS... UD PRN PO 07/18/17 12:30 08/17/17 12:29 Glucose (Glucose Chew Tab) 4-8 Tablets 4 Tabl... UD PRN PO 07/18/17 12:30 08/17/17 12:29 Dextrose (Dextrose 50% 50ML Syringe) 25-50ML 25ML FOR ... UD PRN IV 07/18/17 12:30 08/17/17 12:29 Glucagon (Glucagon Inj) 1 mg UD PRN SQ 07/18/17 12:30 08/17/17 12:29 Carbohydrates (Carbohydrates For Hypoglycemia) 15-30 GRAMS 15 grams if BSG 54-69... UD PRN PO 07/18/17 12:30 08/17/17 12:29 Clonidine HCl (Catapres Tab) 0.1 mg Q6 PRN PO 07/18/17 13:30 08/17/17 13:29 Ketorolac Tromethamine (Toradol Inj) 30 mg Q6H PRN IV 07/19/17 10:45 07/24/17 10:44 07/19/17 15:56 30 MG Insulin Glargine (Lantus Solostar Pen) 6 units DAILY SC 07/20/17 09:00 08/17/17 20:59 Polyethylene (Miralax Powder Packet) 17 gm Q6 PO 07/19/17 18:00 08/18/17 17:59 07/20/17 05:41 17 GM
[2017-07-20] MEDS ORDERED: POLYETHYLENE (MIRALAX) 17 GM PACK PO SCH (06:00)
[2017-07-20 07:40] VITALS: BP 127/79; PULSE 74; TEMP 37.4; O2SAT 96
[2017-07-20] MEDS: KETOROLAC TROMETHAMINE 30 MG/ML VIAL IV PRN (08:10)
[2017-07-20] MEDS: GABAPENTIN 600 MG TAB PO SCH (08:10)
[2017-07-20] MEDS: ENALAPRIL MALEATE 10 MG TAB PO SCH (08:11)
--- NOTE | 2017-07-20 08:23 | Orthopedic Progress Note ---
Orthopedic Progress Note Date of Service July 20, 2017. Subjective Post OP Day: 2 Reports: feeling well Additional Notes: Daniele is postoperative day 2 revision lumbar decompression fusion. He is doing great. No radicular leg pain. Back pain is controlled. MELISSA drain output last shift to 10 cc. He is passing flatus but no bowel movement. Yesterday in physical therapy he completed 600 ftt. This morning he made 3 laps around the hallways. He is anxious to go home. Objective calves soft nontender, N/V intact, dressing C/D/I, A&O x3 He is standing in the room. No obvious distress. Lumbar dressing is clean dry and intact. Lower extremities are neurovascular intact. Calves are soft nontender bilaterally. Date Time Temp Pulse Resp B/P (MAP) Pulse Ox O2 Delivery O2 Flow Rate FiO2 07/20/17 07:40 37.4 74 16 127/79 (95) 96 Room Air 07/19/17 23:12 37.3 73 18 127/66 (86) 97 Room Air 07/19/17 19:40 Room Air 07/19/17 15:23 36.9 66 16 119/68 (85) 100 Room Air 07/19/17 11:10 37.0 73 16 124/65 (84) 100 Room Air 07/19/17 11:01 64 98 Assessment & Plan Assessment: Postoperative day 2 revision lumbar decompression fusion Plan: We will DC MELISSA drain and dressing. He is anxious to return home. Will discharge home today. All questions were answered in detail. Restrictions were also reviewed in detail. Inhouse Planning Pain Management: Oxy IR DVT Prophylaxis: Michelle Workman Discharge Planning Discharge Planning: home Pain Management: Oxy IR DVT Prophylaxis: Jacinta
--- NOTE | 2017-07-20 08:27 | Discharge Summary ---
Orthopedic Discharge Summary Admission Date/Reason July 18, 2017 at 07:30 Lumbar Spinal Stenosis. Discharge Date/Disposition July 20, 2017 Home Diagnosis Principal Diagnosis: L2-3 spinal stenosis Procedure(s) Performed Removal of instrumentation L3-4, L4-5. Expiration fusion L3-4, L4-5. Lumbar decompression L2-3, instrumented fusion L2 through L5. Medication Reconciliation New Medications: Oxycodone HCl (Oxycodone HCl) 5 Mg Tab 5-10 MG PO Q4H PRN for Moderate - severe pain for 30 Days, #60 TAB Continued Medications: Atorvastatin (Lipitor) 80 Mg Tab 80 MG PO HS, TAB Benazepril (Lotensin) 20 Mg Tab 20 MG PO QAM, TAB Cholecalciferol (Vitamin D3) 1,000 Unit Tab 1 TAB PO QAM, TAB 3 Refills Dasatinib (Sprycel) 50 Mg Tab 1 TAB PO DAILY Gabapentin (Neurontin) 600 Mg Tab 1 TAB PO TID, TAB Glimepiride (Glimepiride) 2 Mg Tab 1 TAB PO BID, TAB 3 Refills Levothyroxine Sodium (Synthroid) 25 Mcg Tab 25 MCG PO QAM, TAB Metformin Hcl (Glucophage Ext Rel) 1,000 Mg Tab 1 TAB PO BID, TAB Admission Physical Exam As per Admitting History & Physical. Hospital Course Patient has had an uncomplicated hospital course. Lab values have been stable. He has made great progress in physical therapy. Pain is been controlled. He is discharged home on postoperative day 2. Discharge Instructions ACTIVITY RECOMMENDATIONS: SELF CARE INSTRUCTIONS AFTER THORACIC/LUMBAR FUSIONS 1. You may walk to your tolerance. It is good exercise for your legs and back. Expect some back and intermittent leg aches and pains. 2. You may perform "counter-top" level activities (make a sandwich, ely with a project, etc.). 3. No bending or lifting of more than 10 pounds or back twisting of any nature (roll like a log when turning in bed). 4. You may ride in a car for 20-30 minutes at a time. No driving until after your first visit with your doctor. 5. Frequent changes of position and restricting sitting to 30 minutes at a time will help limit the amount of back spasms and stiffness you may experience. 6. You may discontinue the use of ambulatory aids (cane, crutches, etc.) once your strength and confidence allow. 7. You may prec[employer] i police sergeant the shower and let water strike your incision when you arrive home at least once daily. Do not take a tub bath, sit in a hot tub or go into a swimming pool until after your first recheck in the office. SPECIAL CARE INSTRUCTIONS: VERY IMPORTANT TO READ AND REVIEW A. Your surgical incision has been closed with a cosmetic suture under the skin that will dissolve in about 6 weeks. In 14 days, you can use a pair of clean scissors and cut the suture that is left outside of the skin at the ends of your incision. 1. The small skin tapes can be removed 7 days after surgery if they have not fallen off by that point. 2. You may keep the wound open to air as much as possible to promote healing after post-op day number 5 unless told otherwise by your doctor. 3. If you think the wound looks like it is becoming infected (redness or worsening drainage) and/or you are experiencing fever, chill or worsening back pain and muscle spasms, contact the office so that we may evaluate you as soon as possible. B. Complications are uncommon, but please contact us if you have any signs or symptoms of: 1. wound infection (fever higher than 102.5 degrees F, redness, separation of wound, drainage, or increasing pain from the incision) 2. blood clots in legs (pain, swelling, redness and warmth in legs) 3. urinary tract infection (fever higher than 102.5 degrees F, burning upon urination or increased frequency of urination) 4. nerve problems (inability to walk on your toes or heels, numbness, loss of bowel or bladder control) 5. any other symptoms that concern you C. Please call the office at if you have any concerns or questions about your operation or recovery. D. No smoking! Smoking drastically decreases the chance of a solid fusion. E. Do not take any anti-inflammatory medications (Indocin, Advil, Motrin, Aspirin, Naprosyn, etc.) as these may inhibit the chance of a solid fusion. Tylenol is okay to take for pain. MANAGING PAIN AFTER SPINAL SURGERY 1. Narcotic medication is intended for short-term use and will be provided for surgical pain. Surgical pain usually lasts for a period of 4-6 weeks. Narcotic medication includes Percocet, Vicodin, Darvocet, Tylenol #3 or Lortab. 2. Longer-term pain is more appropriately treated with non-narcotic medication such as Tylenol ES. 3. Muscle spasm is not appropriately treated with narcotics. Muscle relaxers such as Soma, Flexeril or Skelaxin can be used along with Tylenol ES. 4. Remember that we all live with some "aches and pains". This is not unusual or uncommon after an injury or as we get older. a. Back pain is expected and may include muscle spasms for 4 to 6 weeks after surgery. The pain should gradually improve. If the pain worsens for no apparent reason, please contact the office. b. Intermittent leg pain may also be experienced and should not be concerned about unless it worsens for no apparent reason. If so, please contact the office. 5. We will provide appropriate medication within the normal guidelines of their prescribed use. We will also be very cautious and aware of potential abuse and extended duration of patients' medication needs. a. Pain medications are for your comfort and to assist with sleep and rest so that the tissue can heal. They are not provided in order to return to normal activity and should not be used through the day. To do so or worsening pain at night can result from ongoing tissue damage and development of tolerance to the prescribed medicine. 6. Please allow 2-3 days to process refills. Prescriptions will not be mailed but must be picked up at the office. FOLLOW UP VISIT: Keep your scheduled follow-up appointment. Any questions, please call the office at . Please refer to the electronic Patient Visit Report (Discharge Instructions) for additional information.
[2017-07-20] MEDS ORDERED: INSULIN GLARGINE SOLOSTAR 100 UNITS/ML 3 ML PEN SC SCH (09:00)
[2017-07-20] MEDS: INSULIN ASPART 100 UNITS/ML 3 ML PEN SC SCH ×2 (09:10→12:00)
[2017-07-20 12:29] VITALS: BP 127/79; PULSE 74; TEMP 37.4; O2SAT 96
== END 2017-07-20 13:49 | disposition home or self-care (01) | DRG 454 ==
LOC: C.ACU 05:42 → C.3E 07:30 → ENRESERV 10:51
PROVIDERS: ADMIT Orthopaedic Surgery Orthopaedic Surgery of the Spine; ATTEND Orthopaedic Surgery Orthopaedic Surgery of the Spine
PROC: 0SP004Z Removal of Internal Fixation Device from Lumbar Vertebral Joint, Open Approach (ICD-10-PCS; principal; 2017-07-18 07:45)
PROC: 0ST20ZZ Resection of Lumbar Vertebral Disc, Open Approach (ICD-10-PCS; principal; 2017-07-18 07:45)
PROC: 0SG0071 Fusion of Lumbar Vertebral Joint with Autologous Tissue Substitute, Posterior Approach, Posterior Column, Open Approach (ICD-10-PCS; principal; 2017-07-18 07:45)
PROC: 0SG00AJ Fusion of Lumbar Vertebral Joint with Interbody Fusion Device, Posterior Approach, Anterior Column, Open Approach (ICD-10-PCS; principal; 2017-07-18 07:45)
DX: M48.062 Spinal stenosis, lumbar region with neurogenic claudication (principal); C92.10 Chronic myeloid leukemia, BCR/ABL-positive, not having achieved remission; E11.40 Type 2 diabetes mellitus with diabetic neuropathy, unspecified; I10 Essential (primary) hypertension; E78.5 Hyperlipidemia, unspecified; Z79.84 Long term (current) use of oral hypoglycemic drugs; Z79.899 Other long term (current) drug therapy; Z98.1 Arthrodesis status; Z88.5 Allergy status to narcotic agent; Z88.8 Allergy status to other drugs, medicaments and biological substances

== ENCOUNTER → 2017-10-06 | Outpatient (CLI) | payer OTHER ==
[~2017-10-06] MED LIST changes: -ACETAMINOPHEN 500 MG TAB PO SCH; -CEFAZOLIN 2000MG IV PUSH 15 ML IV SCH; -CeleBREX 200 MG CAP PO SCH; -GABAPENTIN 600 MG PO SCH; +RXC5 PO; -SODIUM CHLORIDE 0.9% 1000ML 1,000 ML IV SCH; -SPRYCEL PO; +[UNRECOGNIZED DRUG - CODE] PO
--- NOTE | 2017-10-07 16:18 | EEG Procedure Note ---
EEG Procedure Note Date of Service Oct 07, 2017. Start / End Times Start Time: 2:31 p.m. End Time: 2:51 p.m. Referring Physician Mariza Olguin PAC History Dizziness, confusion, evaluate for possible seizures Home Medication List Scheduled Atorvastatin (Lipitor), 80 MG PO HS Benazepril (Lotensin), 20 MG PO QAM Cholecalciferol (Vitamin D3), 1 TAB PO QAM Dasatinib (Sprycel), 1 TAB PO DAILY Gabapentin (Neurontin), 1 TAB PO TID Glimepiride (Glimepiride), 1 TAB PO BID Levothyroxine Sodium (Synthroid), 25 MCG PO QAM Metformin Hcl (Glucophage Ext Rel), 1 TAB PO BID Scheduled PRN Oxycodone HCl (Oxycodone HCl), 5-10 MG PO Q4H PRN for Moderate - severe pain Description This is a 21 electrode EEG with a single channel dedicated to limited EKG. The electrodes were placed in accordance with the International 10-20 system. There is a posterior dominant rhythm of 8-9 hertz which is symmetrically distributed and attenuates with eye opening. There is a normal anterior to posterior organization. Photic stimulation is unremarkable. Hyperventilation is unremarkable. There is a minimal degree of admixed generalized theta rhythm observed in the latter part of the study. There is no focal slowing. No epileptiform abnormalities observed. Interpretation Normal appearing EEG demonstrating a normal background rhythm. Clinical Correlation A normal EEG does not completely exclude a diagnosis of epilepsy. Further clinical correlation may be needed.
== END | disposition home or self-care (01) ==
LOC: C.NEUR 13:55
PROVIDERS: ATTEND Physician Assistant
DX: R55 Syncope and collapse (principal)

== ENCOUNTER 2018-07-23 06:01 | Inpatient (IN) ==
--- NOTE | 2018-07-07 15:45 | PAT Medication Instructions ---
Medication Instructions Date of Service July 07, 2018 Home Medications atorvastatin 80 mg tablet 80 mg PO HS cholecalciferol (vitamin D3) 1,000 1,000 units PO DAILY dasatinib 50 mg tablet 50 mg PO QPM levothyroxine 25 mcg tablet 25 mcg PO QAM metformin ER 500 mg 1,000 mg PO BID duloxetine 30 mg capsule,delayed 60 mg PO QAM duloxetine 30 mg capsule,delayed 60 mg PO HS hydrocodone 5 mg-acetaminophen 325 1 tab PO Q6H PRN pregabalin [Lyrica] 150 mg PO TID ASK your prescriber and surgeon dasatinib 50 mg tablet 50 mg PO QPM DO NOT take the morning of surgery cholecalciferol (vitamin D3) 1,000 1,000 units PO DAILY metformin ER 500 mg 1,000 mg PO BID Take morning of surgery With a small sip of water, OTHERWISE NOTHING TO EAT OR DRINK AFTER MIDNIGHT: levothyroxine 25 mcg tablet 25 mcg PO QAM duloxetine 30 mg capsule,delayed 60 mg PO QAM hydrocodone 5 mg-acetaminophen 325 1 tab PO Q6H PRN (okay to take up to 4 hours prior to surgery if needed) pregabalin [Lyrica] 150 mg PO TID Take evening before surgery atorvastatin 80 mg tablet 80 mg PO HS metformin ER 500 mg 1,000 mg PO BID duloxetine 30 mg capsule,delayed 60 mg PO HS hydrocodone 5 mg-acetaminophen 325 1 tab PO Q6H PRN (if needed) pregabalin [Lyrica] 150 mg PO TID Other Notes If you have any questions please call us at [phone] or [phone] or [phone] or [phone]
--- NOTE | 2018-07-08 12:45 | Anesthesiology Consultation ---
Date of Service July 08, 2018 Assessment & Plan (1) Encounter for pre-operative examination: - Check BSG, CBC with diff (on dasatinib/Sprycel) AM DOS Chart Review Chart Review: Acceptable Risk for Surgery and Patient seen in Pre Admission Testing Teaching & Discussion Pre-Anesthesia Teaching/Discussion Notes: Instructed NPO after midnight before surgery,except medications with 15 cc of water. Medication instructions provided according to the PAT guidelines. History Surgery Operation Date: 07/15/18 12:45 Proposed Procedures p L2-L5 Removal of Instrumentation, T12-L1, L1-L2 Decompression and Fusion, Spinal Cord Monitoring - Jose Grover DO Height/Weight Height: 5 ft 10 in Weight: 78 kg Allergies Allergy/AdvReac Type Severity Reaction Status Date / Time lisinopril AdvReac Mild NAUSEA Verified 07/07/18 11:19 codeine AdvReac Unknown NAUSEA Verified 07/07/18 11:19 Medications Home Medications Medication Instructions Recorded Confirmed Last Taken atorvastatin 80 mg tablet 80 mg PO HS tab 11/11/17 07/07/18 Unknown cholecalciferol (vitamin D3) 1,000 1,000 units PO DAILY 11/11/17 07/07/18 Unknown unit capsule dasatinib 50 mg tablet 50 mg PO QPM 11/11/17 07/07/18 Unknown levothyroxine 25 mcg tablet 25 mcg PO QAM 11/11/17 07/07/18 Unknown metformin ER 500 mg 1,000 mg PO BID tab 11/11/17 07/07/18 Unknown tablet,extended release 24 hr duloxetine 30 mg capsule,delayed 60 mg PO QAM cap 02/10/18 07/07/18 Unknown release duloxetine 30 mg capsule,delayed 60 mg PO HS cap 03/16/18 07/07/18 Unknown release hydrocodone 5 mg-acetaminophen 325 1 tab PO Q6H PRN 06/01/18 07/07/18 Unknown mg tablet pregabalin [Lyrica] 150 mg PO TID 07/07/18 07/07/18 Unknown Past Medical History Medical History Lumbar radicular pain GROIN RADIATION AND NEUROPATHY Diabetes NIDDM Diabetic neuropathy HTN (hypertension) HLD (hyperlipidemia) Depression Diabetic retinopathy EYE INJECTIONS MONTHLY Anxiety CML (chronic myelocytic leukemia) ON DASATINIB Chronic back pain Exercise / Class Metabolic Activity II 4-5 Yardwork/Stairs/Walk up hill Past Family History Family History Grandfather (Maternal) Family hx of colon cancer Brother FHx: prostate cancer Past Surgical History Surgical History History of lumbosacral spine surgery (Resolved) 1983 (NO HARDWARE) History of vasectomy (Resolved) Status post carpal tunnel release (Resolved) Status post right inguinal herniorrhaphy (Resolved) Fusion of spine LUMBAR H/O vitrectomy RIGHT EYE History of cardiac cath 2010= NO STENTS History of cataract surgery B/L; + IMPLANT ON RIGHT History of colonoscopy History of detached retina repair RIGHT EYE History of herniorrhaphy UMBILICAL, INGUINAL Past Anesthesia History No Hx of Anesthesia Complications and No Family Hx of Anesthesia Complications History of PONV No Hx of PONV and No Hx of Motion Sickness Social History Smoking Status: Never smoker Do You Dip or Chew Tobacco: No Hx Alcohol Use: Yes Alcohol type: beer alcohol intake frequency: a few times a month Hx Substance Use: Yes (A COUPLE TIMES A MONTH) substance use type: marijuana Last Used Substance: Unknown Review of Systems Patient denies chest pain, shortness of breath, dyspnea on exertion, cough, wheezing, palpitations. Physical Exam Vital Signs VITALS BP 136/78 P 68 TEMP 98.1 SP02 96%RA RESP 18 PHYSICAL Full neck and c-spine range of motion. Full TMJ range of motion. TMD 2.5 finger breaths Mallampati Score 2 Dentition: several missing/rotted/chipped teeth, poor dentition* Lungs: clear throughout to auscultation Cardiac: regular rate and rhythm, no murmurs noted Spine: normal Carotid arteries: negative bruit Extremities: no edema Testing Electrocardiogram Date: 07/08/18 Findings: + NSR @ (73) Chest X-Ray Date: 07/08/18 Findings: + NAD Laboratory Results Blood Type A Positive 07/08/18 13:10 Antibody Screen NEGATIVE 07/08/18 13:10 PT 10.4 Seconds (9.0-12.0) 07/08/18 13:10 INR 1.0 (0.9-1.1) 07/08/18 13:10 APTT 26.0 Seconds (21.0-31.0) 07/08/18 13:10 Urine Color Yellow 07/08/18 13:10 Urine Appearance Clear (Clear) 07/08/18 13:10 Urine pH 5.0 (4.5-7.5) 07/08/18 13:10 Ur Specific [place] 1.031 (1.000-1.030) H 07/08/18 13:10 Urine Protein Negative (Negative) 07/08/18 13:10 Urine Glucose (UA) Negative (Negative) 07/08/18 13:10 Urine Ketones Trace (Negative) H 07/08/18 13:10 Urine Nitrite Negative (Negative) 07/08/18 13:10 Ur Leukocyte Esterase Negative (Negative) 07/08/18 13:10 05/29/18 WBC 5.9 H/H 13.3/38.4 PLATELETS 230 SODIUM 140 POTASSIUM 4.9 CHLORIDE 107 CO2 32 BUN 18 CREATININE 1.03 GLUCOSE 169 HGBA1C 6.2%
--- NOTE | 2018-07-08 13:29 | XRay Report ---
XR chest Pre-admission PA/Lat CLINICAL HISTORY: pat preoperative evaluation COMPARISON STUDY: 09/16/2016 FINDINGS: The bones soft tissues and hemidiaphragms are normal. The cardiomediastinal silhouette is n ormal. The lungs are clear. The pulmonary vasculature is normal. IMPRESSION: Negative chest. The above report was generated using voice recognition software. It may contain grammatical, syntax or spelling errors. Electronically signed by: Joshua Arias M.D. 07/08/2018 1:28 PM
[2018-07-08 15:14] LABS: Appearance Urine Clear (Clear); Bilirubin Urine Negative (Negative); Color Urine Yellow; Glucose Urine UA Negative (Negative); Ketones Urine Trace (Negative); Leukocyte Esterase Urine Negative (Negative); Nitrite Urine Negative (Negative); Protein Urine Negative (Negative); Specific Gravity Urine 1.031 (1.000-1.030); Urobilinogen Urine Negative (Negative)
[2018-07-08 15:23] LABS: Prothrombin Time 10.4 Seconds (9.0-12.0)
[~2018-07-23 06:01] MED LIST changes: +ACETAMINOPHEN 500 MG TAB PO SCH; -ATOR-26 PO; -BENA20TA14 PO; +CEFAZOLIN 1000MG 1,000 MG/7.5 ML SYR IV SCH; -CHOL1000 PO; +CeleBREX 200 MG CAP PO SCH; +GABAPENTIN 300 MG x 2 PO SCH; -GLIM2TAB2 PO; -LEVO25TA PO; +LR 15ML/HR IV SCH; -METF1TAB53 PO; -NRN/600 PO; -RXC5 PO; -[UNRECOGNIZED DRUG - CODE] PO
[2018-07-23 06:34] LABS: Basophils # (auto) 0.04 K/uL (0-0.2); Basophils % (auto) 0.8 %; Eosinophils # (auto) 0.15 K/uL (0-0.5); Eosinophils % (auto) 3.2 %; Hematocrit (blood only) 37.1 % (42-52); Hemoglobin 13.3 g/dL (14.0-18.0); Immature Granulocytes # (auto) 0.01 K/uL (0.00-0.02); Immature Granulocytes % (auto) 0.2 %; Lymphocytes # (auto) 1.11 K/uL (1.2-3.4); Lymphocytes % (auto) 23.5 %; Mean Corpuscular Volume 95.1 fL (80-100); Mean Platelet Volume 9.9 fL (7.4-10.4); Monocytes # (auto) 0.59 K/uL (0.11-0.59); Monocytes % (auto) 12.5 %; Neutrophils # (auto) 2.82 K/uL (1.4-6.5); Neutrophils % (auto) 59.8 %; Platelet Count 178 K/uL (130-400); RDW Coefficient of Variation 14.1 % (11.5-14.5); RDW Standard Deviation 48.8 fL (36.4-46.3); White Blood Count 4.72 K/uL (4.8-10.8)
[2018-07-23 06:35] LABS: Mean Corpuscular Hgb Conc 35.8 g/dL (32-36)
[2018-07-23] MEDS ORDERED: fentaNYL citrate 100 MCG/2 ML VIAL ONE ×5 (06:46→10:39)
[2018-07-23] MEDS ORDERED: HYDROmorphone INJ 2 MG/ML SYR/VIAL ONE ×3 (06:46→10:32)
[2018-07-23] MEDS ORDERED: MIDAZOLAM HCL 1 MG/ML 2ML VIAL ONE (06:46)
[2018-07-23] MEDS ORDERED: DEXAMETHASONE SOD INJ 4 MG/ML VIAL ONE (06:47)
[2018-07-23] MEDS ORDERED: GLYCOPYRROLATE 0.2 MG/ML VIAL ONE (06:47)
[2018-07-23] MEDS ORDERED: PROPOFOL IV EMULSION 10 MG/ML 20 ML VIAL IV ONE (06:47)
[2018-07-23] MEDS ORDERED: ROCURONIUM BROMIDE 10 MG/ML 5 ML VIAL ONE (06:47)
[2018-07-23] MEDS ORDERED: LIDOCAINE HCL 2% 2 ML VIAL/AMP(20MG/ML) INFIL ONE (06:47)
[2018-07-23] MEDS ORDERED: NEOSTIGMINE METHYLSULFATE 1 MG/ML 10ML VIAL ONE (06:47)
[2018-07-23] MEDS ORDERED: PROPOFOL IV EMULSION 10 MG/ML 100 ML VIAL IV ONE (07:05)
[2018-07-23] MEDS ORDERED: BUPIVACAINE/EPINEPHRINE 0.5% MPF 1:200,000 30 ML VIAL ONE (07:15)
[2018-07-23] MEDS ORDERED: BACITRACIN INJ 50,000 UNIT VIAL ONE (07:15)
[2018-07-23] MEDS ORDERED: ALBUMIN HUMAN 5% 12.5 GM/250 ML VIAL IV ONE (07:18)
--- NOTE | 2018-07-23 07:31 | History & Physical Bridge Note ---
Date of Service July 23, 2018 History & Physical Bridge Note I have examined the patient, reviewed the History & Physical and in the interval since the performance of the History & Physical I have noted the following changes of clinical significance: no changes noted
--- NOTE | 2018-07-23 07:32 | History & Physical Report ---
Date of Service July 23, 2018 Assessment & Plan (1) Spinal stenosis, lumbar region with neurogenic claudication: Removal of instrumentation L2-L5 decompression fusion T12-L1 L1-2 Present on Admission?: Yes History of Present Illness Chief Complaint: Back and leg pain Primary Care Provider: Drew Coreas MD This is a 63-year-old male well-known to me that presents with chronic persistent back and leg pain. After failing extensive course of nonoperative care is here for surgical intervention. Allergies Allergy/AdvReac Type Severity Reaction Status Date / Time lisinopril AdvReac Mild NAUSEA Verified 07/23/18 06:22 codeine AdvReac Unknown NAUSEA Verified 07/23/18 06:22 Home Medications Home Medications Medication Instructions Recorded Confirmed Type atorvastatin 80 mg tablet 80 mg PO HS tab 11/11/17 07/23/18 History cholecalciferol (vitamin D3) 1,000 1,000 units PO DAILY 11/11/17 07/23/18 History unit capsule dasatinib 50 mg tablet 50 mg PO QPM 11/11/17 07/23/18 History levothyroxine 25 mcg tablet 25 mcg PO QAM 11/11/17 07/23/18 History metformin ER 500 mg 1,000 mg PO BID tab 11/11/17 07/23/18 History tablet,extended release 24 hr duloxetine 30 mg capsule,delayed 60 mg PO QAM cap 02/10/18 07/23/18 History release duloxetine 30 mg capsule,delayed 60 mg PO HS cap 03/16/18 07/23/18 History release hydrocodone 5 mg-acetaminophen 325 1 tab PO Q6H PRN 06/01/18 07/23/18 History mg tablet pregabalin [Lyrica] 150 mg PO TID 07/07/18 07/23/18 History Past Med/Surg History Medical History Lumbar radicular pain GROIN RADIATION AND NEUROPATHY Diabetes NIDDM Diabetic neuropathy HTN (hypertension) HLD (hyperlipidemia) Depression Diabetic retinopathy EYE INJECTIONS MONTHLY Anxiety CML (chronic myelocytic leukemia) ON DASATINIB Chronic back pain Surgical History History of lumbosacral spine surgery (Resolved) 1983 (NO HARDWARE) History of vasectomy (Resolved) Status post carpal tunnel release (Resolved) Status post right inguinal herniorrhaphy (Resolved) Fusion of spine LUMBAR H/O vitrectomy RIGHT EYE History of cardiac cath 2011= NO STENTS History of cataract surgery B/L; + IMPLANT ON RIGHT History of colonoscopy History of detached retina repair RIGHT EYE History of herniorrhaphy UMBILICAL, INGUINAL Family History Grandfather (Maternal) Family hx of colon cancer Brother FHx: prostate cancer Social History Preferred Language: Mexican Communication Ability: Effective Visual Impairment: No Limitations Hearing Ability: Normal Strip Picker Required: No Beliefs That Will Affect Care: None marital status: Current Living Situation: Spouse current occupational status: retired Other Information That Helps Us Care for You: No Feels Safe at Home: Yes Safety Concerns: Feels Safe At This Time Smoking Status: Never smoker Do You Dip or Chew Tobacco: No Second Hand Exposure: Yes ( A CHILD) Tobacco Cessation Education Requested by Patient: No Hx Alcohol Use: Yes Alcohol type: beer Hx Substance Use: Yes (A COUPLE TIMES A MONTH) substance use type: marijuana Last Used Substance: Unknown Physical Exam Vital Signs (Past 24 Hours): Last Vital Signs Temp 36.5 C 07/23/18 06:25 Pulse 74 07/23/18 06:25 Resp 18 07/23/18 06:25 BP 170/91 H 07/23/18 06:25 Pulse Ox 99 07/23/18 06:25 Physical Exam: Patient is alert and oriented and neurologically intact.
[2018-07-23] MEDS ORDERED: CEFAZOLIN 250 MG/ML 1 GM VIAL ONE (08:18)
[2018-07-23] MEDS ORDERED: LARYING-O-JET KIT (LTA) ONE (08:35)
[2018-07-23] MEDS ORDERED: ESMOLOL HCL INJ 10 MG/ML 10ML VIAL IV ONE (08:51)
[2018-07-23] MEDS ORDERED: ePHEDrine sulfate 50 MG/ML SYR ONE (09:03)
[2018-07-23] MEDS ORDERED: SODIUM CHLORIDE 0.9% INJ 10 ML VIAL ONE (09:53)
[2018-07-23] MEDS ORDERED: FLOSEAL HEMOSTATIC MATRIX 10ML TOP ONE (09:59)
--- NOTE | 2018-07-23 10:20 | Operative Report ---
Post Operative Report Pre & Post Diagnosis Operation Date: 07/23/18 07:45 Pre-Op Diagnosis: Radiculopathy, Lumbar Region Post-Op Diagnosis: Radiculopathy, Lumbar Region Procedure Operation Date: 07/23/18 07:45 Actual Procedures #1 removal of posterior segmental instrumentation L2-3 L3-4 L4-5. #2 expiration fusion L2-3 L3-4 L4-5. #3 lumbar decompression with bilateral medial facetectomies and foraminotomies T12-L1 L1-2. #4 posterior spinal fusion T12-L1 L1-2. #5 placement posterior segmental instrumentation using globus rods and screws T12-L3. #6 fusion L1-2. #7 placement of peek cage 10 x 26 mm at L1-L2. #8 placement of local autograft in the posterior lateral gutters. #9 placement infuse collagen sponge, master graft the posterior lateral gutters and ostial amp and interbody space. Surgeon Jose Grover, DO Bottle Packer Kacie Rico Estimated Blood Loss 500 Findings See Below Patient had a blood loss in excess of 500 cc. This did prolong procedure by at least 25% as it created significant difficulties with visualization during the complex decompression at the thoracal lumbar junction. Specimens None Indications This is a 63-year-old male well-known to me that presents with the above- mentioned diagnosis. He had a marked decline in status over the past several months and left undergo the above-mentioned procedure. Description of Procedure Patient was met with identified and informed consent obtained. Patient was then taken to the operative suite underwent intubation and placed in a prone position the Ashok table on top of the Jaquan frame. All bony prominences well-padded eyes inspected to ensure no external pressure placed upon. This point the cervical lumbar spine was prepped and draped in the normal sterile fashion. Sharp dissection with the assistance of Bovie cautery was then performed down to and exposing the lamina and transverse processes of T12 L1-L2 and instrumentation L2-L3-L4 5 bilaterally. Then proceed remove the hardware bilaterally explore the fusion mass noting it to be intact. Then performed a complete laminectomy of L1 and partial laminectomy of T12 including bilateral medial facetectomies foraminotomies addressing significant stenosis. Pedicle screws were placed at T12 L1-L2 and L3 bilaterally with assistance of fluoroscopy and appropriate size rods placed. By way of a transforaminal approach on the right complete discectomy of L1-2 was performed in plate graded to subcortical being bone and a 10 x 26 mm peek cage filled with ostium bone graft tapped in position. The rods were then locked in final position bilaterally. The transverse processes of T12 L1-L2-L3 burred to subcortical bleeding bone. Infuse collagen sponge mass graft local autograft placed in the posterior lateral gutters. 15 round MELISSA drain inserted. Incision was then closed with 1 Vicryl fascia 2-0 Vicryl subtenons seen for Monocryl for final skin closure. Steri-Strip sterile dressings placed. Patient will continue PACU stable condition. Please note Kacie Rico present throughout the entire procedure involved in patient positioning complex portions of the surgery and final skin closure. Lastly spinal cord monitoring was utilized throughout the procedure and no changes noted. I attest to the content of the Intraoperative Record and any orders documented therein. Any exceptions are noted below.
[2018-07-23] MEDS ORDERED: ATROPINE SULFATE 0.1 MG/ML 10ML SYR IV PRN (10:26)
[2018-07-23] MEDS ORDERED: LABETALOL HCL IV 5 MG/ML 20ML IV PRN (10:26)
[2018-07-23] MEDS ORDERED: fentaNYL citrate 100 MCG/2 ML VIAL IV PRN (10:26)
[2018-07-23] MEDS ORDERED: NALOXONE HCL 0.4 MG/1 ML VIAL/CARP IV PRN (10:26)
[2018-07-23] MEDS ORDERED: ePHEDrine sulfate 50 MG/ML AMP IV PRN (10:26)
[2018-07-23] MEDS ORDERED: ONDANSETRON INJ 2 MG/ML 2 ML VIAL IV PRN ×2 (10:26→11:38)
[2018-07-23] MEDS ORDERED: PROMETHAZINE HCL 12.5 MG in SODIUM CHLORIDE 0.9% 50 ML IV PRN ×2 (10:26→11:38)
[2018-07-23] MEDS ORDERED: FLUMAZENIL 0.1 MG/1 ML 10 ML VIAL IV PRN (10:26)
--- NOTE | 2018-07-23 10:30 | Fluoroscopy Report ---
LUMBAR SPINE, INTRAOPERATIVE FLUOROSCOPY HISTORY: T12-L2 fusion.. FLUOROSCOPY TIME: 31 seconds. FINDINGS: Intraoperative fluoroscopy was provided for the lumbar spine. 4 fluoroscopic spot images we re obtained. Posterior decompression fusion from T12 through L3. There is an L2-L3 disc spacer which is posteriorly displaced and protrudes into the central canal. However, this remains unchanged from t he prior studies. Otherwise, the hardware is intact. IMPRESSION: Fluoroscopy provided for a T12-L1 posterior decompression fusion. There is an L2-L3 disc spacer which is posteriorly displaced and protrudes into the central canal. However, this remains unc hanged from the prior studies. Otherwise, the hardware is intact. Electronically signed by: William Herrera M.D. 07/23/2018 10:29 AM
[2018-07-23] MEDS ORDERED: HYDROmorphone INJ 0.5 MG/0.5 ML SYR IV PRN ×2 (10:52→11:38)
[2018-07-23] MEDS ORDERED: HYDROmorphone INJ 0.5 MG/0.5 ML SYR ONE (11:15)
--- NOTE | 2018-07-23 11:29 | Anesthesiology Progress Note ---
Date of Service July 23, 2018 Anesthesia Post Procedure Vital Signs Vital Signs: Temp Pulse Resp BP Pulse Ox 07/23/18 11:15 68 16 116/63 99 07/23/18 11:05 72 16 120/58 L 99 07/23/18 10:55 63 14 115/62 99 07/23/18 10:45 70 14 132/71 100 07/23/18 10:35 73 14 143/89 H 100 07/23/18 10:29 36.5 C 74 14 128/67 100 07/23/18 06:25 36.5 C 74 18 170/91 H 99 Pain Intensity Lower Abdomen: Pain Intensity: 8 Transfer of Care Handoff Completed per policy Notes Mental Status: alert / awake / arousable Patient Amnestic to Procedure: Yes Nausea / Vomiting: adequately controlled Pain: adequately controlled Airway Patency, RR, SpO2: stable & adequate BP & HR: stable & adequate Hydration State: stable & adequate Anesthetic Complications: no major complications apparent
[2018-07-23] MEDS ORDERED: PHENYLEPHRINE 100MCG/ML 5ML SYR ONE (11:33)
[2018-07-23] MEDS ORDERED: LABETALOL HCL IV 5 MG/ML 20ML IV ONE (11:34)
[2018-07-23] MEDS ORDERED: HydrALAZINE HCL 20 MG/ML VIAL ONE (11:34)
[2018-07-23] MEDS ORDERED: MAGNESIUM HYDROXIDE SUSP 30 ML UDC PO PRN (11:38)
[2018-07-23] MEDS ORDERED: LORazepam 0.5 MG/1 ML VIAL IV PRN (11:38)
[2018-07-23] MEDS ORDERED: FAMOTIDINE 20 MG TAB PO PRN (11:38)
[2018-07-23] MEDS ORDERED: DO NOT ADMINISTER PNEUMOCOCCAL VACCINE PRN (11:38)
[2018-07-23] MEDS ORDERED: ALUMINUM/MAGNESIUM SUSP 30 ML UDC PO PRN (11:38)
[2018-07-23] MEDS ORDERED: TRAMADOL HCL 50 MG TABLET PO PRN (11:38)
[2018-07-23] MEDS ORDERED: DO NOT ADMINISTER FLU VACCINE PRN (11:38)
[2018-07-23] MEDS ORDERED: HYDROCODONE/ACETAMOPHEN 5/325MG TAB PO PRN (11:38)
[2018-07-23] MEDS ORDERED: ACETAMINOPHEN 1,000 MG/100 ML VIAL IV PRN (11:38)
[2018-07-23] MEDS ORDERED: ONDANSETRON 4 MG TAB PO PRN (11:38)
[2018-07-23] MEDS ORDERED: SOD PHOSPHATE/SOD BIPHOSPHATE ENEMA 132 ML BTL PR PRN (11:38)
[2018-07-23] MEDS ORDERED: METOCLOPRAMIDE HCL INJ 5 MG/ML 2 ML VIAL IV PRN (11:38)
[2018-07-23] MEDS ORDERED: ACETAMINOPHEN 500 MG TAB PO PRN (11:38)
[2018-07-23] MEDS ORDERED: BISACODYL 10 MG SUPP PR PRN (11:38)
[2018-07-23] MEDS ORDERED: LORazepam 0.5 MG TAB PO PRN (11:38)
[2018-07-23] MEDS ORDERED: HYDROCODONE/ACETAMOPHEN 5/325MG TAB PO ONE (12:09)
[2018-07-23] MEDS: HYDROCODONE/ACETAMOPHEN 5/325MG TAB PO PRN ×2 (12:10→16:11)
[2018-07-23] MEDS: KETOROLAC 30 MG/ML VIAL IV SCH ×2 (14:08→20:54)
[2018-07-23] MEDS: SODIUM CHLORIDE 0.9% 1000ML 1,000 ML IV SCH ×2 (14:08→20:55)
[2018-07-23] MEDS: PREGABALIN 150 MG CAP PO SCH ×2 (14:08→21:02)
[2018-07-23] MEDS ORDERED: PHARMACY GLYCEMIC MGMT CONSULT SCH (15:11)
[2018-07-23] MEDS ORDERED: GLUCAGON FOR INJ 1 MG VIAL IM PRN (15:15)
[2018-07-23] MEDS ORDERED: DEXTROSE 50% 50 ML SYRINGE IV PRN (15:15)
[2018-07-23] MEDS ORDERED: GLUCOSE 10 TABS/TUBE PO PRN (15:15)
[2018-07-23] MEDS ORDERED: GLUCOSE 40% GEL 15 GM TUBE PO PRN (15:15)
[2018-07-23] MEDS ORDERED: CARBOHYDRATES FOR HYPOGLYCEMIA PO PRN (15:15)
--- NOTE | 2018-07-23 15:20 | Pharmacy Report ---
Glycemic Control Consultation - Date of Service July 23, 2018 - Scope Scope: Glycemic Pharmacist consulted by Dr Grover on 07/23/18 for glycemic control and to write orders per [facility] inpatient glycemic control protocol - Objective Weight: 75.296 kg Accuchecks BSG (last 24hrs): 07/23/18 07/23/18 06:19 10:46 POC Glucose 160 H 232 H - Recent Pertinent Medications Outpatient Anti-diabetic Regimen: * Metformin ER 1000mg PO BID * A1c = 6.2 % 06/22/18 Risk Factors for Insulin Resistance: * Steroids: Dexamethasone 12mg IV x1 preop * Infection: pre and post op cefazolin * Recent Surgery: POD 0 Removal of instrumentation L2-L5 decompression fusion T12-L1 L1-2 * Diet: Type 2 DM - Assessment & Plan Assessment & Plan: ASSESSMENT: * 63 year old male, admitted with spinal stenosis, lumbar region with neurogenic claudication, s/p removal of instrumentation L2-L5 decompression fusion T12-L1 L1-2 * Type 2 diabetic with good control as outpatient, hyperglycemic now d/t IV steroids received * Pt is maintained on oral antidiabetic agents as an outpatient * Oral agents are not recommended for inpatient use d/t drug interactions, changing PO intake, and difficulty titrating for acute hyper/hypoglycemia. ADA recommends re-initiating outpatient oral agents 1-2 days prior to discharge if/when appropriate if they were held on admission. * Will hold oral agents for admission and utilize SQ basal bolus insulin regimen which is the recommended regimen for inpatient glycemic control. * Will initiate weight based insulin dosing for insulin chris patient and titrate based on BSG trends. * Will give total daily dose of Lantus x1 dose now, patient may need another dose tomorrow morning, based on BSGs and effects of IV steroids. * Accuchecks overnight for IV steroids * ADA & AACE recommend a goal blood sugar range 140-180 mg/dl for the majority of critically ill & non-critically ill patients. However, more stringent targets may be selected in individual cases. Will utilize more stringent goal of 110-140mg/dl based on patient age & comorbidities. Additionally, tighter glycemic control is warranted to facilitate wound/infection healing. PLAN FOR INPATIENT GLYCEMIC CONTROL: * Holding outpatient oral diabetes medications * Basal insulin * Lantus 40 units SQ x 1 dose now * another dose 5/24 AM based on BSG * Bolus insulin * NovoLog per scale ACHS or Q6hrs while NPO and overnight at 0000 and 0400 * Goal Range: Low 110 mg/dL - High 140 mg/dL * Correction Factor: 20 mg/dL/unit * Nutritional / Prandial insulin per carb ratio of 1 unit per 7 grams CHO consumed * Please note that the plan above was derived based on current level of insulin resistance and hospital stress. These recommendations are appropriate for inpatient admission only. Plan of care upon discharge will need to be reassessed to avoid potential outpatient hypo/hyperglycemia. Thank you.
[2018-07-23] MEDS ORDERED: LANTUS PER UNIT CHARGE SQ ONE (15:30)
[2018-07-23] MEDS: CEFAZOLIN 2000MG 2,000 MG/15 ML SYR IV SCH (16:10)
[2018-07-23] MEDS: INSULIN ASPART 100 UNITS/ML 3 ML PEN SC SCH ×2 (18:25→21:11)
[2018-07-23] MEDS: ATORVASTATIN 40 MG TAB PO SCH (20:58)
[2018-07-23] MEDS: DULOXETINE HCL 60 MG CAP PO SCH (20:59)
[2018-07-23] MEDS: DOCUSATE SODIUM/SENNA 50/8.6MG TAB PO SCH (20:59)
[2018-07-24] MEDS: CEFAZOLIN 2000MG 2,000 MG/15 ML SYR IV SCH (00:11)
[2018-07-24] MEDS: INSULIN ASPART 100 UNITS/ML 3 ML PEN SC SCH ×6 (00:23→22:02)
[2018-07-24] MEDS: KETOROLAC 30 MG/ML VIAL IV SCH ×2 (02:50→07:44)
[2018-07-24] MEDS: SODIUM CHLORIDE 0.9% 1000ML 1,000 ML IV SCH (04:19)
[2018-07-24] MEDS: POLYETHYLENE (MIRALAX) 17 GM PACK PO SCH ×4 (06:10→23:29)
[2018-07-24] MEDS: LEVOTHYROXINE SODIUM 25 MCG TABLET PO SCH (06:10)
[2018-07-24 06:26] LABS: BUN Creatinine Ratio 17.2 (10-20); Calcium 8.6 mg/dl (8.5-10.1); Creatinine Clr Calc Pharmacy 62.6 ml/min; Est GFR (African American) 71.5; Est GFR (Non-African American) 61.7
[2018-07-24 06:27] LABS: Hematocrit (blood only) 22.6 % (42-52); Immature Granulocytes # (auto) 0.03 K/uL (0.00-0.02); Immature Granulocytes % (auto) 0.3 %; Lymphocytes # (auto) 1.14 K/uL (1.2-3.4); Lymphocytes % (auto) 10.8 %; Mean Corpuscular Hgb Conc 35.4 g/dL (32-36); Mean Corpuscular Volume 95.4 fL (80-100); Mean Platelet Volume 9.8 fL (7.4-10.4); Monocytes # (auto) 1.37 K/uL (0.11-0.59); Monocytes % (auto) 12.9 %; Neutrophils # (auto) 8.04 K/uL (1.4-6.5); Platelet Count 178 K/uL (130-400); RDW Coefficient of Variation 14.3 % (11.5-14.5); RDW Standard Deviation 49.8 fL (36.4-46.3); Red Blood Count 2.37 M/uL (4.7-6.1); White Blood Count 10.58 K/uL (4.8-10.8)
[2018-07-24] MEDS: HYDROCODONE/ACETAMOPHEN 5/325MG TAB PO PRN ×2 (08:54→16:31)
[2018-07-24] MEDS: DULOXETINE HCL 60 MG CAP PO SCH ×2 (08:55→21:47)
[2018-07-24] MEDS: CHOLECALCIFEROL 1,000 UNITS TAB PO SCH (08:55)
[2018-07-24] MEDS: PREGABALIN 150 MG CAP PO SCH ×3 (08:57→21:48)
[2018-07-24] MEDS ORDERED: LANTUS PER UNIT CHARGE SQ ONE (09:00)
--- NOTE | 2018-07-24 09:38 | Anesthesiology Progress Note ---
Date of Service July 24, 2018 Anesthesia Post Procedure Vital Signs Vital Signs: Temp Pulse Pulse Pulse Resp BP Pulse Ox 07/24/18 07:18 36.8 C 67 18 127/63 98 07/24/18 03:57 36.6 C 81 16 111/55 L 98 07/23/18 23:18 36.8 C 91 H 16 100/57 L 98 07/23/18 18:22 79 16 126/67 96 07/23/18 16:45 81 107/68 100 07/23/18 15:52 17 163/72 H 100 07/23/18 14:45 67 16 148/74 H 100 07/23/18 13:46 63 15 138/74 100 07/23/18 12:45 79 16 136/75 100 07/23/18 12:17 36.5 C 72 16 132/70 100 07/23/18 11:45 36.5 C 73 18 131/67 100 07/23/18 11:35 36.4 C L 65 16 123/61 99 07/23/18 11:25 36.4 C L 66 16 86/67 L 99 07/23/18 11:15 68 16 116/63 99 07/23/18 11:05 72 16 120/58 L 99 07/23/18 10:55 63 14 115/62 99 07/23/18 10:45 70 14 132/71 100 07/23/18 10:35 73 14 143/89 H 100 07/23/18 10:29 36.5 C 74 14 128/67 100 Pain Intensity Lower Abdomen: Pain Intensity: 8 Lower Back: Pain Intensity: 5 Notes Mental Status: alert / awake / arousable Patient Amnestic to Procedure: Yes Nausea / Vomiting: adequately controlled Pain: improving with treatment Airway Patency, RR, SpO2: stable & adequate BP & HR: stable & adequate Hydration State: stable & adequate Anesthetic Complications: no major complications apparent
--- NOTE | 2018-07-24 13:45 | Pharmacy Report ---
Pharmacy Glycemic Short Note 2 - Date of Service July 24, 2018 - Glycemic Short BSG Results (Last 24 hours): 07/23/18 07/23/18 07/24/18 16:57 20:45 00:03 Glucose POC Glucose 281 H 201 H 148 H 07/24/18 07/24/18 07/24/18 04:01 05:38 08:03 Glucose 99 POC Glucose 126 H 129 H 07/24/18 12:07 Glucose POC Glucose 113 H ASSESSMENT: * Mr. Henderson's BSGs better controlled today. BSGs over the previous 24hrs: [phone]/dL. He required 54 units of insulin yesterday, basal heavy. His outpt glycemic management is adequate as evidenced by his A1c of 6.2%. * I anticipate the DXM will start to wear off, ergo, correctional insulin will be loosened and no further lantus to be ordered. PLAN FOR INPATIENT GLYCEMIC CONTROL: * Hold outpatient oral diabetes medications * Basal insulin * Lantus 13 x1 given this AM * Bolus insulin - loosen at dinner * NovoLog per scale ACHS or Q6hrs while NPO * Goal Range: Low 110 mg/dL - High 140 mg/dL * Correction Factor: 30 mg/dL/unit * Nutritional / Prandial insulin per carb ratio of 1 unit per 10 grams CHO consumed PLAN FOR DISCHARGE: * Continue Metformin, barring any intolerances
--- NOTE | 2018-07-24 13:55 | Hospitalist Consultation ---
Date of Consultation July 24, 2018 Assessment & Plan (1) Spinal stenosis, lumbar region with neurogenic claudication: - S/p lumbar procedure on 07/23/18; POD#1. - Pain control per primary team. - PT/OT ordered for evaluation. - DVT ppx per ortho team -- currently holding pharmacologic ppx. (2) Acute anemia: - Significant decrease in hemoglobin level post op. Likely related to intra op blood loss and partially dilutional. - Dressing was saturated with sanguinous material this afternoon; repeat hemoglobin level was 7.1 (previously 13.3 pre-op) - Transfuse 2 units pRBCs this evening; repeat H/H following transfusion. - Surgeon was also contacted for dressing change. (3) CML (chronic myelocytic leukemia): - Continue Dasatinib as prescribed -- his is bringing medication from home. (4) HLD (hyperlipidemia): - Continue statin as prescribed. (5) HTN (hypertension): - Not currently on agents at home. - BP has been fluctuating but is currently well controlled. (6) Type II diabetes mellitus: - Most recent A1C was 6.2 in June 2018. - SSI coverage ordered, management per pharmacy consult. - Can resume home Metformin ER 1 gm BID at discharge. (7) Diabetic neuropathy: - Continue Lyrica 150 mg TID as prescribed. (8) Depression: - Continue Cymbalta BID as prescribed. (9) Hypothyroidism: - Continue Synthroid 25 mcg daily as prescribed. - Most recent TSH was in August 2017; will repeat labs in the AM. (10) DVT prophylaxis: - Holding pharmacologic ppx per orthopedics. Dispo: Will continue to follow, please call with any questions. Supervising Physician Co-Signing Physician Notes Attending Attestation - Chart reviewed, care plan d/w CAM Leavitt. I agree w/ the brownlee components of her documentation. POD #1 lumbar back surgery. Acute blood loss anemia -- agree with 2 units PRBCs. Repeat CBC am. Other plans per Ms Leavitt. Chris Evans MD History of Present Illness Reason for Consultation: Medical Management Attending Physician: Jose Grover DO History of Present Illness Mr. Henderson is a 63 year old male with past medica history of spinal stenosis of the lumbar region, type II DM, neuropathy, HTN, HLD, Depression/anxiety, CML, hypothyroidism who presented for planned lumbar procedure. Pt. is doing well post op -- he has pain, well controlled with current meds. Urine output was low overnight, will monitor. Had adequate output this morning. Denies chest pain, SOB, N/V, diarrhea or constipation. Allergies Allergy/AdvReac Type Severity Reaction Status Date / Time lisinopril AdvReac Mild NAUSEA Verified 07/23/18 06:22 codeine AdvReac Unknown NAUSEA Verified 07/23/18 06:22 Home Medications Home Medications Medication Instructions Recorded Confirmed Type atorvastatin 80 mg tablet 80 mg PO HS tab 11/11/17 07/23/18 History cholecalciferol (vitamin D3) 1,000 1,000 units PO DAILY 11/11/17 07/23/18 History unit capsule dasatinib 50 mg tablet 50 mg PO QPM 11/11/17 07/23/18 History levothyroxine 25 mcg tablet 25 mcg PO QAM 11/11/17 07/23/18 History metformin ER 500 mg 1,000 mg PO BID tab 11/11/17 07/23/18 History tablet,extended release 24 hr duloxetine 30 mg capsule,delayed 60 mg PO QAM cap 02/10/18 07/23/18 History release duloxetine 30 mg capsule,delayed 60 mg PO HS cap 03/16/18 07/23/18 History release hydrocodone 5 mg-acetaminophen 325 1 tab PO Q6H PRN 06/01/18 07/23/18 History mg tablet Lyrica 150 mg PO TID 07/07/18 07/23/18 History hydrocodone-acetaminophen [[place]] 1 tab PO Q6H PRN #30 tab 07/24/18 Rx tramadol 50 mg PO Q4H PRN #30 tab 07/24/18 Rx Patient History Medical History Lumbar radicular pain GROIN RADIATION AND NEUROPATHY Diabetes NIDDM Diabetic neuropathy HTN (hypertension) HLD (hyperlipidemia) Depression Diabetic retinopathy EYE INJECTIONS MONTHLY Anxiety Chronic back pain CML (chronic myelocytic leukemia) ON DASATINIB Surgical History Fusion of spine LUMBAR H/O vitrectomy RIGHT EYE History of cardiac cath 2010= NO STENTS History of cataract surgery B/L; + IMPLANT ON RIGHT History of colonoscopy History of detached retina repair RIGHT EYE History of herniorrhaphy UMBILICAL, INGUINAL History of lumbosacral spine surgery (Resolved) 1983 (NO HARDWARE) History of vasectomy (Resolved) Status post carpal tunnel release (Resolved) Status post right inguinal herniorrhaphy (Resolved) Family History Grandfather (Maternal) Family hx of colon cancer Brother FHx: prostate cancer Social History Preferred Language: Hungarian Communication Ability: Effective Visual Impairment: No Limitations Hearing Ability: Normal [employer] Required: No Beliefs That Will Affect Care: None marital status: Current Living Situation: Spouse current occupational status: retired Other Information That Helps Us Care for You: No Feels Safe at Home: Yes Safety Concerns: Feels Safe At This Time Smoking Status: Never smoker Do You Dip or Chew Tobacco: No Second Hand Exposure: Yes ( A CHILD) Tobacco Cessation Education Requested by Patient: No Hx Alcohol Use: Yes Alcohol type: beer Hx Substance Use: Yes (A COUPLE TIMES A MONTH) substance use type: marijuana Last Used Substance: Unknown Physical Exam Physical Exam: General: Resting comfortably in no apparent distress; A&OX3 HEENT: NC/AT; PERRLA with EOMI; [place] conjunctiva, MMM. No erythema of posterior pharynx Neck: Supple and nontender Cardiac: RRR w/o murmurs, gallops or rubs Lungs: CTA bilaterally; No rhonchi, wheezing, or rales Abdomen: Bowel normoactive X 4; Nontender to palpation Extremities: Warm. No edema present Neuro: No focal weakness Skin: No rash Results & Data Vital Signs (Past 12 Hours) Vital Signs Temp Pulse Resp BP Pulse Ox 07/24/18 07:18 36.8 C 67 18 127/63 98 07/24/18 03:57 36.6 C 81 16 111/55 L 98 Laboratory Results 07/24/18 07/24/18 07/24/18 Range/Units 12:07 08:03 05:38 WBC (4.8-10.8) K/uL RBC (4.7-6.1) M/uL Hgb (14.0-18.0) g/dL Hct (42-52) % MCV (80-100) fL MCH (25-34) pg MCHC (32-36) g/dL RDW Std Deviation (36.4-46.3) fL RDW Coeff of Layo (11.5-14.5) % Plt Count (130-400) K/uL MPV (7.4-10.4) fL Immature Gran % (Auto) % Neut % (Auto) % Lymph % (Auto) % [place] % (Auto) % Eos % (Auto) % Baso % (Auto) % Immature Gran # (Auto) (0.00-0.02) K/uL Neut # (Auto) (1.4-6.5) K/uL Lymph # (Auto) (1.2-3.4) K/uL [place] # (Auto) (0.11-0.59) K/uL Eos # (Auto) (0-0.5) K/uL Baso # (Auto) (0-0.2) K/uL Sodium (136-145) mmol/L Potassium (3.5-5.1) mmol/L Chloride (98-107) mmol/L Carbon Dioxide (21-32) mmol/L Anion Gap (3-11) BUN (7-18) mg/dl Creatinine (0.6-1.4) mg/dl Est Cr Clr Drug Dosing ml/min Est GFR ( Amer) Est GFR (Non-Af Amer) BUN/Creatinine Ratio (10-20) Glucose (70-99) mg/dl POC Glucose 113 H 129 H (70-99) Calcium (8.5-10.1) mg/dl Hepatitis C Ab Screen Neg (Neg) 07/24/18 07/24/18 07/24/18 Range/Units 05:38 05:38 04:01 WBC 10.58 (4.8-10.8) K/uL RBC 2.37 L (4.7-6.1) M/uL Hgb 8.0 L D (14.0-18.0) g/dL Hct 22.6 L (42-52) % MCV 95.4 (80-100) fL MCH 33.8 (25-34) pg MCHC 35.4 (32-36) g/dL RDW Std Deviation 49.8 H (36.4-46.3) fL RDW Coeff of Layo 14.3 (11.5-14.5) % Plt Count 178 (130-400) K/uL MPV 9.8 (7.4-10.4) fL Immature Gran % (Auto) 0.3 % Neut % (Auto) 76.0 % Lymph % (Auto) 10.8 % [place] % (Auto) 12.9 % Eos % (Auto) 0.0 % Baso % (Auto) 0.0 % Immature Gran # (Auto) 0.03 H (0.00-0.02) K/uL Neut # (Auto) 8.04 H (1.4-6.5) K/uL Lymph # (Auto) 1.14 L (1.2-3.4) K/uL [place] # (Auto) 1.37 H (0.11-0.59) K/uL Eos # (Auto) 0.00 (0-0.5) K/uL Baso # (Auto) 0.00 (0-0.2) K/uL Sodium 142 (136-145) mmol/L Potassium 4.0 (3.5-5.1) mmol/L Chloride 110 H (98-107) mmol/L Carbon Dioxide 26 (21-32) mmol/L Anion Gap 6.0 (3-11) BUN 21 H (7-18) mg/dl Creatinine 1.23 (0.6-1.4) mg/dl Est Cr Clr Drug Dosing 62.6 ml/min Est GFR ( Amer) 71.5 Est GFR (Non-Af Amer) 61.7 BUN/Creatinine Ratio 17.2 (10-20) Glucose 99 (70-99) mg/dl POC Glucose 126 H (70-99) Calcium 8.6 (8.5-10.1) mg/dl Hepatitis C Ab Screen (Neg) 07/24/18 07/23/18 07/23/18 Range/Units 00:03 20:45 16:57 WBC (4.8-10.8) K/uL RBC (4.7-6.1) M/uL Hgb (14.0-18.0) g/dL Hct (42-52) % MCV (80-100) fL MCH (25-34) pg MCHC (32-36) g/dL RDW Std Deviation (36.4-46.3) fL RDW Coeff of Layo (11.5-14.5) % Plt Count (130-400) K/uL MPV (7.4-10.4) fL Immature Gran % (Auto) % Neut % (Auto) % Lymph % (Auto) % [place] % (Auto) % Eos % (Auto) % Baso % (Auto) % Immature Gran # (Auto) (0.00-0.02) K/uL Neut # (Auto) (1.4-6.5) K/uL Lymph # (Auto) (1.2-3.4) K/uL [place] # (Auto) (0.11-0.59) K/uL Eos # (Auto) (0-0.5) K/uL Baso # (Auto) (0-0.2) K/uL Sodium (136-145) mmol/L Potassium (3.5-5.1) mmol/L Chloride (98-107) mmol/L Carbon Dioxide (21-32) mmol/L Anion Gap (3-11) BUN (7-18) mg/dl Creatinine (0.6-1.4) mg/dl Est Cr Clr Drug Dosing ml/min Est GFR ( Amer) Est GFR (Non-Af Amer) BUN/Creatinine Ratio (10-20) Glucose (70-99) mg/dl POC Glucose 148 H 201 H 281 H (70-99) Calcium (8.5-10.1) mg/dl Hepatitis C Ab Screen (Neg)
--- NOTE | 2018-07-24 15:20 | Orthopedic Progress Note ---
Date of Service July 24, 2018 Assessment & Plan (1) Spinal stenosis, lumbar region with neurogenic claudication: This time we will continue to advance physical therapy monitor his MELISSA output anticipate discharge home the next few days. Present on Admission?: Yes Subjective Patient's back pain is controlled leg symptoms are markedly improved. Physical Exam Physical Exam: On exam is good strength testing appears quite comfortable. Results & Data Vital Signs (Past 12 Hours) Vital Signs Temp Pulse Resp BP Pulse Ox 07/24/18 13:40 99 07/24/18 07:18 36.8 C 67 18 127/63 98 07/24/18 03:57 36.6 C 81 16 111/55 L 98
[2018-07-24 17:07] LABS: Hemoglobin 7.1 g/dL (14.0-18.0)
[2018-07-24] MEDS ORDERED: SODIUM CHLORIDE 0.9% 250 ML IV PRN (17:15)
[2018-07-24] MEDS: ATORVASTATIN 40 MG TAB PO SCH (21:47)
[2018-07-24] MEDS: DOCUSATE SODIUM/SENNA 50/8.6MG TAB PO SCH (21:48)
[2018-07-24] MEDS: SPRYCEL PO SCH (21:49)
[2018-07-24] MEDS: DEXAMETHASONE SOD PHOSPHATE 8 MG in SYRINGE 0 ML IV SCH (22:25)
[2018-07-25] MEDS: LEVOTHYROXINE SODIUM 25 MCG TABLET PO SCH (06:14)
[2018-07-25] MEDS: DEXAMETHASONE SOD PHOSPHATE 8 MG in SYRINGE 0 ML IV SCH ×3 (06:14→21:23)
[2018-07-25] MEDS: POLYETHYLENE (MIRALAX) 17 GM PACK PO SCH (06:15)
[2018-07-25 06:16] LABS: Hematocrit (blood only) 29.8 % (42-52); Hemoglobin 10.8 g/dL (14.0-18.0); Mean Corpuscular Hgb Conc 36.2 g/dL (32-36); Mean Corpuscular Volume 90.6 fL (80-100); Mean Platelet Volume 10.4 fL (7.4-10.4); Platelet Count 134 K/uL (130-400); RDW Coefficient of Variation 16.7 % (11.5-14.5); RDW Standard Deviation 55.3 fL (36.4-46.3); Red Blood Count 3.29 M/uL (4.7-6.1); White Blood Count 10.69 K/uL (4.8-10.8)
[2018-07-25 06:43] LABS: BUN Creatinine Ratio 19.1 (10-20); Est GFR (African American) 98.9; Est GFR (Non-African American) 85.3; Potassium 4.7 mmol/L (3.5-5.1)
[2018-07-25] MEDS ORDERED: INSULIN GLARGINE SOLOSTAR 100 UNITS/ML 3 ML PEN SC ONE (07:45)
[2018-07-25] MEDS: INSULIN ASPART 100 UNITS/ML 3 ML PEN SC SCH ×4 (08:43→21:29)
[2018-07-25] MEDS: HYDROCODONE/ACETAMOPHEN 5/325MG TAB PO PRN ×2 (08:50→23:41)
[2018-07-25] MEDS: DULOXETINE HCL 60 MG CAP PO SCH ×2 (08:51→21:22)
[2018-07-25] MEDS: CHOLECALCIFEROL 1,000 UNITS TAB PO SCH (08:51)
[2018-07-25] MEDS: PREGABALIN 150 MG CAP PO SCH ×3 (08:51→21:22)
[2018-07-25] MEDS ORDERED: SPRYCEL PO SCH (09:00)
--- NOTE | 2018-07-25 10:27 | Orthopedic Progress Note ---
Date of Service July 25, 2018 Assessment & Plan (1) Spinal stenosis, lumbar region with neurogenic claudication: Patient is status post 2 units of blood last night he feels much improved today. We will monitor his MELISSA output today. Most likely discharge home tomorrow. Present on Admission?: Yes Subjective Patient's back pain is controlled leg symptoms improved. Physical Exam Physical Exam: On exam he has good strength testing appears comfortable. Results & Data Vital Signs (Past 12 Hours) Vital Signs Temp Pulse Pulse Resp BP BP Pulse Ox 07/25/18 08:00 36.7 C 77 16 147/77 H 94 07/25/18 00:07 36.9 C 72 18 133/68 96 07/24/18 23:12 36.9 C 85 18 147/75 H 97
--- NOTE | 2018-07-25 13:37 | Hospitalist Progress Note ---
Date of Service July 25, 2018 Assessment & Plan (1) Spinal stenosis, lumbar region with neurogenic claudication: - S/p lumbar procedure on 07/23/18; POD#2. - Pain control per primary team. - PT/OT evaluation for discharge planning. - Decadron 8 mg IV q8hr. - DVT ppx per ortho team. (2) Acute anemia: - Significant decrease in H/H post op -- related to intra op blood loss and bleeding from incision site/drain. - Anemia improved following 2 units pRBCs on 07/24. - Monitor CBC qAM. (3) CML (chronic myelocytic leukemia): - Continue Dasatinib as prescribed. (4) HLD (hyperlipidemia): - Continue statin as prescribed. (5) HTN (hypertension): - Not currently on agents at home. - BP is intermittently high, no treatment indicated as inpt. - Can f/u with PCP to discuss. (6) Type II diabetes mellitus: - Most recent A1C was 6.2 in June 2018. - SSI coverage, management per pharmacy consult. - Can resume home Metformin ER 1 gm BID at discharge. (7) Diabetic neuropathy: - Continue Lyrica 150 mg TID as prescribed. (8) Depression: - Continue Cymbalta BID as prescribed. (9) Hypothyroidism: - Continue Synthroid 25 mcg daily as prescribed. - TSH was 0.482. (10) DVT prophylaxis: - Holding pharmacologic ppx per ortho. Dispo: Pt. is medically stable, will sign off. Supervising Physician Co-Signing Physician Notes Attending Attestation - Chart reviewed, care plan d/w CAM Leavitt. I agree w/ the brownlee components of her documentation. POD #2 lumbar back surgery. Acute blood loss anemia -- s/p 2 units PRBCs yesterday with stable H/H today. Other chronic medical issues stable. Vitals acceptable. Repeat CBC in am for stability. Chris Evans MD Subjective Pt. is doing well. Pain post op is stable, well controlled. Is having regular BMs. Bleeding at site of dressing improved, H/H stable after blood transfusion. Review of Systems Review of Systems: All systems reviewed & are unremarkable except as noted in HPI & below Constitutional: no fever, no chills, no fatigue, no weakness and no anorexia Respiratory: no cough, no dyspnea, no dyspnea on exertion and no wheezing Cardiovascular: no chest pain, no palpitations and no edema Gastrointestinal: no abdominal pain, no nausea, no vomiting, no constipation, no diarrhea/loose stools and no melena Genitourinary: no difficulty urinating Musculoskeletal: + back pain; no joint pain Integumentary: no non-healing lesions Allergy / Immunological: no rash Physical Exam Physical Exam: General: Resting comfortably in no apparent distress HEENT: NC/AT; PERRLA with EOMI; [place] conjunctiva, MMM. No erythema of posterior pharynx Neck: Supple and nontender Cardiac: RRR Lungs: CTA bilaterally Abdomen: Bowel normoactive X 4; Nontender to palpation Extremities: Warm. No edema present Neuro: No focal weakness Skin: No rash; dressing on back with no bleeding/discharge noted. Results & Data Vital Signs (Past 12 Hours) Vital Signs Temp Pulse Resp BP Pulse Ox 07/25/18 08:00 36.7 C 77 16 147/77 H 94 Laboratory Results 07/25/18 07/25/18 07/25/18 Range/Units 12:12 08:12 05:33 WBC (4.8-10.8) K/uL RBC (4.7-6.1) M/uL Hgb (14.0-18.0) g/dL Hct (42-52) % MCV (80-100) fL MCH (25-34) pg MCHC (32-36) g/dL RDW Std Deviation (36.4-46.3) fL RDW Coeff of Layo (11.5-14.5) % Plt Count (130-400) K/uL MPV (7.4-10.4) fL Sodium 140 (136-145) mmol/L Potassium 4.7 D (3.5-5.1) mmol/L Chloride 109 H (98-107) mmol/L Carbon Dioxide 24 (21-32) mmol/L Anion Gap 7.0 (3-11) BUN 18 (7-18) mg/dl Creatinine 0.94 (0.6-1.4) mg/dl Est Cr Clr Drug Dosing 82.0 ml/min Est GFR ( Amer) 98.9 Est GFR (Non-Af Amer) 85.3 BUN/Creatinine Ratio 19.1 (10-20) Glucose 172 H (70-99) mg/dl POC Glucose 227 H 223 H (70-99) Calcium 9.0 (8.5-10.1) mg/dl TSH 0.482 (0.300-4.500) uIu/ml Blood Type Antibody Screen Crossmatch 07/25/18 07/24/18 07/24/18 Range/Units 05:33 20:41 17:10 WBC 10.69 (4.8-10.8) K/uL RBC 3.29 L (4.7-6.1) M/uL Hgb 10.8 L D (14.0-18.0) g/dL Hct 29.8 L (42-52) % MCV 90.6 D (80-100) fL MCH 32.8 (25-34) pg MCHC 36.2 H (32-36) g/dL RDW Std Deviation 55.3 H (36.4-46.3) fL RDW Coeff of Layo 16.7 H (11.5-14.5) % Plt Count 134 (130-400) K/uL MPV 10.4 (7.4-10.4) fL Sodium (136-145) mmol/L Potassium (3.5-5.1) mmol/L Chloride (98-107) mmol/L Carbon Dioxide (21-32) mmol/L Anion Gap (3-11) BUN (7-18) mg/dl Creatinine (0.6-1.4) mg/dl Est Cr Clr Drug Dosing ml/min Est GFR ( Amer) Est GFR (Non-Af Amer) BUN/Creatinine Ratio (10-20) Glucose (70-99) mg/dl POC Glucose 110 H 118 H (70-99) Calcium (8.5-10.1) mg/dl TSH (0.300-4.500) uIu/ml Blood Type Antibody Screen Crossmatch 07/24/18 07/23/18 Range/Units 16:04 06:24 WBC (4.8-10.8) K/uL RBC (4.7-6.1) M/uL Hgb 7.1 L (14.0-18.0) g/dL Hct 20.0 L* (42-52) % MCV (80-100) fL MCH (25-34) pg MCHC (32-36) g/dL RDW Std Deviation (36.4-46.3) fL RDW Coeff of Layo (11.5-14.5) % Plt Count (130-400) K/uL MPV (7.4-10.4) fL Sodium (136-145) mmol/L Potassium (3.5-5.1) mmol/L Chloride (98-107) mmol/L Carbon Dioxide (21-32) mmol/L Anion Gap (3-11) BUN (7-18) mg/dl Creatinine (0.6-1.4) mg/dl Est Cr Clr Drug Dosing ml/min Est GFR ( Amer) Est GFR (Non-Af Amer) BUN/Creatinine Ratio (10-20) Glucose (70-99) mg/dl POC Glucose (70-99) Calcium (8.5-10.1) mg/dl TSH (0.300-4.500) uIu/ml Blood Type A Positive Antibody Screen NEGATIVE Crossmatch See Detail
[2018-07-25] MEDS: ATORVASTATIN 40 MG TAB PO SCH (21:22)
[2018-07-25] MEDS: SPRYCEL PO SCH (21:22)
[2018-07-25] MEDS: DOCUSATE SODIUM/SENNA 50/8.6MG TAB PO SCH (21:23)
[2018-07-25] MEDS: INSULIN GLARGINE SOLOSTAR 100 UNITS/ML 3 ML PEN SC SCH (21:28)
[2018-07-26 05:52] LABS: Hematocrit (blood only) 29.1 % (42-52); Hemoglobin 10.7 g/dL (14.0-18.0); Mean Corpuscular Hgb Conc 36.8 g/dL (32-36); Mean Corpuscular Volume 90.4 fL (80-100); Mean Platelet Volume 9.7 fL (7.4-10.4); Platelet Count 165 K/uL (130-400); RDW Coefficient of Variation 16.3 % (11.5-14.5); RDW Standard Deviation 54.4 fL (36.4-46.3); Red Blood Count 3.22 M/uL (4.7-6.1)
[2018-07-26] MEDS: LEVOTHYROXINE SODIUM 25 MCG TABLET PO SCH (06:15)
[2018-07-26] MEDS: HYDROCODONE/ACETAMOPHEN 5/325MG TAB PO PRN ×2 (06:15→10:53)
[2018-07-26] MEDS: DEXAMETHASONE SOD PHOSPHATE 8 MG in SYRINGE 0 ML IV SCH (06:16)
--- NOTE | 2018-07-26 08:00 | Discharge Summary ---
Date of Service July 26, 2018 Admission HPI Per Admitting Provider This is a 63-year-old male well-known to me that presents with chronic persistent back and leg pain. After failing extensive course of nonoperative care is here for surgical intervention. Discharge Data Consultations 07/23/18 11:38 Consult Case Management - Discharge Planning Routine Consult Hospitalist Routine Procedures Performed Operation Date: 07/23/18 07:45 Actual Procedures p T12-L1, L1-L2 Decompression and Fusion, Spinal Cord Monitoring(Not Applicable) - Jose Grover DO s L2-L5 Removal of Instrumentation(Not Applicable) - Jose Grover DO Hospital Course (1) Lumbar disc herniation: Patient is a 63-year-old male with history of physical examination her graft images consistent with the above-mentioned diagnosis. For this reason he is brought to the operating and underwent the above-mentioned procedure. This was performed by Dr. Grover under general anesthesia. Left the operating room the MELISSA drain Cook in place. He was transferred to PACU in stable condition and transferred to the orthopedic floor. He is placed on GI and DVT prophylaxis. He is noted to have acute postoperative blood loss anemia as transfused 2 units of blood. Other than that his stay was uneventful. He has progressed with physical therapy at this point is safe for home discharge. We reviewed his discharge instructions and follow-up care for 2 weeks out from surgery. He will call us to be seen sooner if his symptoms worsen.
[2018-07-26] MEDS: INSULIN ASPART 100 UNITS/ML 3 ML PEN SC SCH (08:41)
[2018-07-26] MEDS: DULOXETINE HCL 60 MG CAP PO SCH (08:43)
[2018-07-26] MEDS: CHOLECALCIFEROL 1,000 UNITS TAB PO SCH (08:43)
[2018-07-26] MEDS: PREGABALIN 150 MG CAP PO SCH (08:44)
[2018-07-26] MEDS: INSULIN GLARGINE SOLOSTAR 100 UNITS/ML 3 ML PEN SC SCH (08:49)
== END 2018-07-26 11:58 | disposition home or self-care (01) | DRG 454 ==
LOC: ASU 06:01 → 3E 10:24
DX: Z88.5 Allergy status to narcotic agent; M54.16 Radiculopathy, lumbar region; Z80.42 Family history of malignant neoplasm of prostate; E11.40 Type 2 diabetes mellitus with diabetic neuropathy, unspecified; M48.062 Spinal stenosis, lumbar region with neurogenic claudication; E11.319 Type 2 diabetes mellitus with unspecified diabetic retinopathy without macular edema; Z88.8 Allergy status to other drugs, medicaments and biological substances; E03.9 Hypothyroidism, unspecified; Z79.84 Long term (current) use of oral hypoglycemic drugs; Z80.0 Family history of malignant neoplasm of digestive organs; Z98.1 Arthrodesis status; E78.5 Hyperlipidemia, unspecified; D62 Acute posthemorrhagic anemia; C92.91 Myeloid leukemia, unspecified in remission; F32.9 Major depressive disorder, single episode, unspecified